=== PATIENT | male | born 1990 | race Caucasian/White ===

== ENCOUNTER 2016-10-22 14:44 | Emergency (ER) | payer OTHER ==
[~2016-10-22] VITALS: Ht 167.6 cm; Wt 47.2 kg
[2016-10-22 14:47] VITALS: TEMP 36.5; Ht 167.6 cm; Wt 47.2 kg
[2016-10-22] MEDS ORDERED: ONDANSETRON INJ 2 MG/ML 2 ML VIAL IV STA ×2 (15:01→16:51)
[2016-10-22] MEDS ORDERED: SODIUM CHLORIDE 0.9% 1000ML 1,000 ML IV STA (15:01)
[2016-10-22] MEDS ORDERED: MoRPHine SULFATE 4 MG/ML 1 ML CARP\\VIAL IV STA (15:01)
[2016-10-22 15:38] LABS: BASO % 0.6 %; BASO ABS # 0.04 K/uL (0-0.2); COMPLETE YES; EOS % 2.6 %; LYMPH % 24.5 %; LYMPH ABS # 1.67 K/uL (1.2-3.4); MEAN CORPUSCULAR HEMOGLOBIN 31.3 pg (25-34); MEAN CORPUSCULAR HGB CONC 35.5 g/dl (32-36); MEAN PLATELET VOLUME 9.2 fL (7.4-10.4); MONO % 6.2 %; NEUT % 66.1 %; PLATELET COUNT 232 K/uL (130-400); RED BLOOD COUNT 5.34 M/uL (4.7-6.1); WHITE BLOOD COUNT 6.82 K/uL (4.8-10.8)
[2016-10-22 15:50] LABS: BUN/CREATININE RATIO 13.9 (10-20); CALCIUM 9.8 mg/dl (8.5-10.1); POTASSIUM 3.9 mmol/L (3.5-5.1)
--- NOTE | 2016-10-22 15:59 | DIAGNOSTIC IMAGING REPORT ---
ABDOMEN AND PELVIS CT WITHOUT CONTRAST CT DOSE: 300.45 mGycm HISTORY: right flank pain eval for stone TECHNIQUE: Multiaxial CT images of the abdomen and pelvis were performed without the use of intravenous and oral contrast according to the standard department stone protocol. COMPARISON STUDY: None. FINDINGS: Emphysema at the lung bases. The unenhanced liver, gallbladder, spleen, pancreas, and adrenal glands are unremarkable. No renal stones or hydronephrosis. No bowel wall thickening or obstruction. Bladder is not well-distended but appears unremarkable. The appendix is identified within the right lower quadrant on images 361 through 370. This is normal in caliber.. No suspicious lytic or blastic osseous lesions. IMPRESSION: 1. No renal stones or hydronephrosis. 2. Emphysema at the lung bases. This could represent an alpha 1 antitrypsin deficiency. Clinical correlation recommended. Electronically signed by: Tae Michael M.D. 10/22/2016 3:57 PM Dictated Date/Time: 10/22/2016 3:49 PM
[2016-10-22] MEDS ORDERED: KETOROLAC TROMETHAMINE 30 MG/ML VIAL IV STA (16:02)
[2016-10-22 16:12] LABS: URINE APPEARANCE CLEAR (CLEAR); URINE BILIRUBIN NEG (NEG); URINE COLOR YELLOW; URINE NITRITE NEG (NEG); URINE SPECIFIC GRAVITY 1.019 (1.000-1.030); UROBILINOGEN NEG (NEG)
[2016-10-22 16:15] LABS: MANUAL MICROSCOPIC REQUIRED? NO; REVIEW REQ? NO
[2016-10-22 17:00] VITALS: BP 127/79; PULSE 50; O2SAT 98
[2016-10-22] MEDS ORDERED: ONDANSETRON HOME PACK 4MG OD TAB PO ONE (17:00)
--- NOTE | 2016-10-22 18:05 | EMERGENCY ROOM VISIT NOTE ---
History Report prepared by Vladimir: Mya Burleson Under the Supervision of: Dr. Randy Cedillo M.D. First contact with patient: 14:49 Chief Complaint: ABDOMINAL PAIN Stated Complaint: VOMITING, STOMACH PAINS Nursing Triage Summary: Pt presents with c/o right sided abd pain and lower back pain x 4 days. N/V/D. Denies urinary s/sx. Denies testicular pain. Fever/chills. History of Present Illness The patient is a 26 year old male who presents to the Emergency Room with complaints of persistent right lower quadrant abdominal pain that began 4 days ago. He describes it as if all of his body weight is in one spot on his abdomen. He also complains of vomiting and diarrhea. Since his abdominal pain began, he usually has an episode of diarrhea in the morning and an episode in the evening. Denies fever, urinary symptoms, or other complaints. Source of History: patient Onset: 4 days ago Position: abdomen (RLQ) Timing: other (persistent) Associated Symptoms: + diarrhea, + vomiting, No fevers, No urinary symptoms Review of Systems See HPI for pertinent positives & negatives. A total of 10 systems reviewed and were otherwise negative. Past Medical & Surgical Medical Problems: (1) Attn Deficit W Hyperact (2) Depressive Disorder Nec (3) Facial swelling (4) Lumbago (5) Tobacco Use Disorder (6) Tooth infection Family History No pertinent family history Social History Smoking Status: Current Every Day Smoker Alcohol Use: occasionally Drug Use: marijuana Marital Status: single Occupation Status: employed Current/Historical Medications No Active Prescriptions or Reported Meds Allergies Coded Allergies: No Known Allergies (Unverified , 01/20/16) Physical Exam Vital Signs Date Time Temp Pulse Resp B/P Pulse Ox O2 Delivery O2 Flow Rate FiO2 10/22/16 17:00 50 16 127/79 98 10/22/16 15:27 50 18 96 Room Air 10/22/16 14:47 36.5 83 18 157/87 100 Room Air Physical Exam Constitutional: Vital signs reviewed. Eyes: Pupils are equal round reactive to light. Conjunctiva are noninjected. ENT: Pharynx is clear without erythema or exudate. Mucous membranes are moist. Neck supple without meningeal signs. Respiratory: Minimal scattered wheezing to auscultation. Breath sounds are equal bilaterally. Cardiovascular: Regular rate and rhythm. No rubs or gallops. GI: Soft, nondistended. Diffuse abdominal tenderness. No CVA tenderness. Bowel sounds are present. Musculoskeletal: No peripheral edema. No lower extremity tenderness. Integumentary: No cyanosis. Neurological: The patient is awake and alert. No focal deficits. Psychiatric: Normal affect. Medical Decision & Procedures ER Provider Diagnostic Interpretation: Radiology results as stated below per my review and the radiologist's interpretation: ABDOMEN AND PELVIS CT WITHOUT CONTRAST CT DOSE: 300.45 mGycm HISTORY: right flank pain eval for stone TECHNIQUE: Multiaxial CT images of the abdomen and pelvis were performed without the use of intravenous and oral contrast according to the standard department stone protocol. COMPARISON STUDY: None. FINDINGS: Emphysema at the lung bases. The unenhanced liver, gallbladder, spleen, pancreas, and adrenal glands are unremarkable. No renal stones or hydronephrosis. No bowel wall thickening or obstruction. Bladder is not well-distended but appears unremarkable. The appendix is identified within the right lower quadrant on images 361 through 370. This is normal in caliber.. No suspicious lytic or blastic osseous lesions. IMPRESSION: 1. No renal stones or hydronephrosis. 2. Emphysema at the lung bases. This could represent an alpha 1 antitrypsin deficiency. Clinical correlation recommended. Electronically signed by: Tae Michael M.D. 10/22/2016 3:57 PM Dictated Date/Time: 10/22/2016 3:49 PM Laboratory Results 10/22/16 15:20 Red Blood Count 5.34, Mean Corpuscular Volume 88.0, Mean Corpuscular Hemoglobin 31.3, Mean Corpuscular Hemoglobin Concent 35.5, Mean Platelet Volume 9.2, Neutrophils (%) (Auto) 66.1, Lymphocytes (%) (Auto) 24.5, Monocytes (%) (Auto) 6.2, Eosinophils (%) (Auto) 2.6, Basophils (%) (Auto) 0.6, Neutrophils # (Auto) 4.51, Lymphocytes # (Auto) 1.67, Monocytes # (Auto) 0.42, Eosinophils # (Auto) 0.18, Basophils # (Auto) 0.04 10/22/16 15:20 Test 10/22/16 15:20 White Blood Count 6.82 K/uL (4.8-10.8) Red Blood Count 5.34 M/uL (4.7-6.1) Hemoglobin 16.7 g/dL (14.0-18.0) Hematocrit 47.0 % (42-52) Mean Corpuscular Volume 88.0 fL (80-100) Mean Corpuscular Hemoglobin 31.3 pg (25-34) Mean Corpuscular Hemoglobin Concent 35.5 g/dl (32-36) Platelet Count 232 K/uL (130-400) Mean Platelet Volume 9.2 fL (7.4-10.4) Neutrophils (%) (Auto) 66.1 % Lymphocytes (%) (Auto) 24.5 % Monocytes (%) (Auto) 6.2 % Eosinophils (%) (Auto) 2.6 % Basophils (%) (Auto) 0.6 % Neutrophils # (Auto) 4.51 K/uL (1.4-6.5) Lymphocytes # (Auto) 1.67 K/uL (1.2-3.4) Monocytes # (Auto) 0.42 K/uL (0.11-0.59) Eosinophils # (Auto) 0.18 K/uL (0-0.5) Basophils # (Auto) 0.04 K/uL (0-0.2) RDW Standard Deviation 49.0 fL (36.4-46.3) RDW Coefficient of Variation 15.2 % (11.5-14.5) Immature Granulocyte % (Auto) 0.0 % Immature Granulocyte # (Auto) 0.00 K/uL (0.00-0.02) Urine Color YELLOW Urine Appearance CLEAR (CLEAR) Urine pH 6.0 (4.5-7.5) Urine Specific [place] 1.019 (1.000-1.030) Urine Protein NEG (NEG) Urine Glucose (UA) NEG (NEG) Urine Ketones NEG (NEG) Urine Occult Blood NEG (NEG) Urine Nitrite NEG (NEG) Urine Bilirubin NEG (NEG) Urine Urobilinogen NEG (NEG) Urine Leukocyte Esterase NEG (NEG) Anion Gap 6.0 mmol/L (3-11) Est Creatinine Clear Calc Drug Dose 74.7 ml/min Estimated GFR () 119.9 Estimated GFR (Non- 103.4 BUN/Creatinine Ratio 13.9 (10-20) Calcium Level 9.8 mg/dl (8.5-10.1) Total Bilirubin 0.7 mg/dl (0.2-1) Direct Bilirubin 0.2 mg/dl (0-0.2) Aspartate Amino Transf (AST/SGOT) 26 U/L (15-37) Alanine Aminotransferase (ALT/SGPT) 45 U/L (12-78) Alkaline Phosphatase 78 U/L (45-117) Total Protein 9.2 gm/dl (6.4-8.2) Albumin 5.1 gm/dl (3.4-5.0) Lipase 129 U/L (73-393) Laboratory results as reviewed by me. Medications Administered Medications (Trade) Dose Ordered Sig/Scarlett Route Start Time Stop Time Status Last Admin Dose Admin Morphine Sulfate (MoRPHine SULFATE INJ) 4 mg ONE STAT IV 10/22/16 15:01 10/22/16 15:02 DC 10/22/16 15:19 4 MG Ondansetron HCl 4 mg 4 mg NOW STAT IV 10/22/16 15:01 10/22/16 15:02 DC 10/22/16 15:20 4 MG Sodium Chloride (Nss 1000ml) 1,000 ml @ 999 mls/hr Q1H1M STAT IV 10/22/16 15:01 10/22/16 16:01 DC 10/22/16 15:19 999 MLS/HR Ketorolac Tromethamine (Toradol Inj) 15 mg NOW STAT IV 10/22/16 16:02 10/22/16 16:03 DC 10/22/16 16:14 15 MG Ondansetron HCl (ZOFRAN ODT 4MG Home Pack) 1 homepack UD ONCE PO 10/22/16 17:00 10/22/16 17:01 DC 10/22/16 16:56 1 HOMEPACK Ondansetron HCl (Zofran Inj) 4 mg NOW STAT IV 10/22/16 16:51 10/22/16 16:52 DC 10/22/16 16:56 4 MG ED Course 1451: The patient was evaluated in room B8. A complete history and physical exam was performed. 1501: Ordered NSS 1000 ml @ 999 mls/hr IV, Zofran Inj 4 mg IV, Morphine Sulfate 4 mg IV. 1602: I reassessed the patient and talked to him about test results. He will follow closely with his doctor. Ordered Toradol Inj 15 mg IV. 1638: I reassessed the patient. he appeared comfortable and in no apparent discomfort. He reviewed the urine results, discharge instructions, and return instructions with the patient. Medical Decision This is a 26-year-old male who presents with abdominal pain, vomiting and diarrhea. Differential diagnosis includes appendicitis, enteritis, colitis, irritable bowel syndrome, inflammatory bowel disease, kidney stone. I did perform a limited focused review of portions of the patient's old chart on the electronic medical record. The patient has had no recent pertinent visits to this hospital. I did evaluate the patient as noted above. The patient is presenting with 4 days of abdominal pain. He has also had vomiting and diarrhea. He has diffuse tenderness on examination. IV access was established. I did treat the patient with IV morphine and Zofran. He was also given normal saline IV. I did order and personally review the patient's urinalysis his white blood cell count is not elevated. He is not anemic. LFTs and lipase are unremarkable. As described above. I did order and review the patient's blood work as noted in the electronic medical record. I did order a CT of the abdomen and pelvis. I did review the images myself as well as the radiology report as described above. There is no evidence of acute pathology. I did reevaluate the patient. He appears to be in no apparent discomfort. He did complain of additional pain. He was given Toradol IV and then Zofran IV. He was informed of his test results. He was advised to follow with his doctor within 24 hours for reevaluation. He was given return instructions as outlined below. He was discharged home with Zofran home pack. Impression Primary Impression: Diffuse abdominal pain Additional Impression: Vomiting and diarrhea Scribe Attestation The scribe's documentation has been prepared under my direct and personally reviewed by me in its entirety. I confirm that the note above accurately reflects all work, treatment, procedures, and medical decision making performed by me. Departure Information Dispostion Home / Self-Care Prescriptions No Active Prescriptions or Reported Meds Referrals No Doctor, Assigned (PCP) Patient Instructions ED Abd Pain Unkn Cause Male, My [facility] Additional Instructions You have been examined and treated today on an emergency basis only. This is not a substitute for, or an effort to provide, complete comprehensive medical care. It is impossible to recognize and treat all injuries or illnesses in a single emergency department visit. It is therefore important that you follow up closely with your physician within 24 hours. Call as soon as possible for an appointment. Return for worsening symptoms or if you develop fever or any other concerning symptoms. Problem Qualifiers
== END 2016-10-22 17:02 | disposition home or self-care (01) ==
LOC: C.EDB 14:45
DX: R10.31 Right lower quadrant pain (principal); R11.10 Vomiting, unspecified; R19.7 Diarrhea, unspecified; F90.0 Attention-deficit hyperactivity disorder, predominantly inattentive type; F32.9 Major depressive disorder, single episode, unspecified; F17.200 Nicotine dependence, unspecified, uncomplicated

== ENCOUNTER 2016-11-14 12:32 | Emergency (ER) | payer OTHER ==
[~2016-11-14] VITALS: Ht 167.6 cm; Wt 46.9 kg
[2016-11-14 12:34] VITALS: TEMP 36.5; Ht 167.6 cm; Wt 46.9 kg
[2016-11-14] MEDS ORDERED: SODIUM CHLORIDE 0.9% 1000ML 1,000 ML IV STA (13:12)
[2016-11-14] MEDS ORDERED: ONDANSETRON INJ 2 MG/ML 2 ML VIAL IV STA (13:12)
[2016-11-14] MEDS: MoRPHine SULFATE 4 MG/ML 1 ML CARP\\VIAL IV PRN ×2 (13:34→15:03)
[2016-11-14 13:52] LABS: BASO % 0.8 %; BASO ABS # 0.05 K/uL (0-0.2); COMPLETE YES; HEMATOCRIT 48.4 % (42-52); IG% 0.2 %; LYMPH % 23.8 %; LYMPH ABS # 1.45 K/uL (1.2-3.4); MEAN CELL VOLUME 89.6 fL (80-100); MEAN CORPUSCULAR HEMOGLOBIN 30.7 pg (25-34); MEAN CORPUSCULAR HGB CONC 34.3 g/dl (32-36); MONO % 7.7 %; NEUT % 66.5 %; PLATELET COUNT 241 K/uL (130-400)
[2016-11-14 14:05] LABS: URINE APPEARANCE CLEAR (CLEAR); URINE BILIRUBIN NEG (NEG); URINE COLOR DK YELLOW; URINE NITRITE NEG (NEG); URINE SPECIFIC GRAVITY 1.028 (1.000-1.030); UROBILINOGEN NEG (NEG)
--- NOTE | 2016-11-14 14:05 | DIAGNOSTIC IMAGING REPORT ---
ABDOMEN 2VIEW W/PA CHEST RTN CLINICAL HISTORY: ABDOMINAL PAIN/GI pain. Nausea. COMPARISON STUDY: No previous studies for comparison. FINDINGS: The soft tissues, psoas shadows, renal outlines and intestinal gas pattern appear normal. There is no evidence for bowel obstruction. There is no evidence for free intraperitoneal air. No abnormal abdominal calcifications are seen. A frontal view of the chest was performed and is unremarkable. IMPRESSION: Normal study. Electronically signed by: Oneil Hayden M.D. 11/14/2016 2:04 PM Dictated Date/Time: 11/14/2016 2:03 PM
[2016-11-14 14:13] LABS: MANUAL MICROSCOPIC REQUIRED? NO; REVIEW REQ? NO
[2016-11-14 14:16] LABS: BUN/CREATININE RATIO 10.7 (10-20); CALCIUM 10.3 mg/dl (8.5-10.1); CREATININE 0.97 mg/dl (0.60-1.40); POTASSIUM 3.9 mmol/L (3.5-5.1)
[2016-11-14] MEDS ORDERED: ONDA4TAB46 PO (14:51)
[2016-11-14] MEDS ORDERED: DICY20TA35 PO (14:51)
[2016-11-14 15:17] VITALS: BP 130/81; PULSE 50; O2SAT 97
--- NOTE | 2016-11-14 21:08 | EMERGENCY ROOM VISIT NOTE ---
ED Visit Note First contact with patient: 12:59 Chief Complaint: Abdominal pain. History of Present Illness: Mr. Jaramillo is a 26 year-old white male who ambulates into the ED accompanied by female friend complaining of mid abdominal pain. Historically patient reports no significant gastrointestinal disorders or abdominal surgeries. He was seen here approximately 2 weeks ago for similar symptoms and after blood work and a CT scan no cause for his pain was found. He was referred to his PCP and on follow-up he reports no additional testing or specialist referral was done. Patient reports over the last 2 days he has been having gradual onset of abdominal pain. He reports this pain is just superior to the umbilicus in the right upper and left upper quadrants. He reports as if someone has punched him in the stomach. He rates his discomfort 8/10. His pain is nonradiating. Palpation increases his discomfort. He has not identified any alleviating factors related to the pain. He has not taken any medication for pain prior to arrival at the hospital. Associated with his pain he reports she's had multiple episodes of bilious vomiting and multiple episodes of dark brown watery stools. He reports she's been having some hot flashes and feeling may have had a fever and he has noted some mild urinary burning and a decreased appetite. Patient denies chills, sweats, skin eruptions, skin color changes, upper respiratory tract symptoms, shortness of breath, chest pain, rectal bleeding, black/tarry stools, hematuria, back/flank pain. Review of Systems: As noted above in history of present illness. All body systems were reviewed and found to be negative as noted above. Past Medical History: Heart disease; patient report he had heart surgery as a child, asthma, bronchitis, pneumonia. Current Medications: Patient denies. Allergies to Medications: Patient denies. Social History: Patient is not employed; he feels safe in his home environment; he admits to tobacco use and denies alcohol use. Physical Examination: Vital Signs: Date Time Temp Pulse Resp B/P Pulse Ox O2 Delivery O2 Flow Rate FiO2 11/14/16 15:17 50 18 130/81 97 11/14/16 15:00 50 18 130/81 97 Room Air 11/14/16 13:00 55 18 136/88 94 Room Air 11/14/16 12:34 36.5 144 18 139/88 94 Room Air GENERAL: 26-year-old male in mild to moderate distress due to pain, nontoxic- appearing, afebrile and hemodynamically stable. NEUROLOGICAL: Awake, alert and oriented to person, place and time. Answering questions appropriately and following commands. Normal gait. Good hand eye coordination. SKIN: Warm, dry and pink. No soft tissue eruptions or trauma noted. HEENT: Atraumatic and normocephalic. PERRL. Sclera white and conjunctiva pink. Oral cavity moist and pink. Pharynx is nonerythematous or edematous. Speech normal. No lymphadenopathy. Trachea midline. No jugular venous distention. BACK: No tenderness over the bony spine. Mild bilateral CVA tenderness. THORAX: Lungs sounds are clear to auscultation and equal bilaterally with symmetrical chest wall. No wheezing, rales or rhonchi. No crepitus, tenderness , subcutaneous air or deformities noted. HEART: Regular rate and rhythm. No gallops, rubs or murmurs are appreciated. ABDOMEN: Flat and soft with [id number] tenderness in all quadrants. Decreased bowel sounds in all quadrants. No guarding, rigidity or organomegaly. EXTREMITIES: Moves all extremities well on command and with purpose. All distal neurovascular statuses are intact and equal bilaterally. ED Course: Patient is assessed as noted above. Laboratory Testing: Test 11/14/16 13:25 11/14/16 13:30 Range/Units White Blood Count 6.10 4.8-10.8 K/uL Red Blood Count 5.40 4.7-6.1 M/uL Hemoglobin 16.6 14.0-18.0 g/dL Hematocrit 48.4 42-52 % Mean Corpuscular Volume 89.6 80-100 fL Mean Corpuscular Hemoglobin 30.7 25-34 pg Mean Corpuscular Hemoglobin Concent 34.3 32-36 g/dl Platelet Count 241 130-400 K/uL Mean Platelet Volume 9.0 7.4-10.4 fL Neutrophils (%) (Auto) 66.5 % Lymphocytes (%) (Auto) 23.8 % Monocytes (%) (Auto) 7.7 % Eosinophils (%) (Auto) 1.0 % Basophils (%) (Auto) 0.8 % Neutrophils # (Auto) 4.06 1.4-6.5 K/uL Lymphocytes # (Auto) 1.45 1.2-3.4 K/uL Monocytes # (Auto) 0.47 0.11-0.59 K/uL Eosinophils # (Auto) 0.06 0-0.5 K/uL Basophils # (Auto) 0.05 0-0.2 K/uL RDW Standard Deviation 49.4 36.4-46.3 fL RDW Coefficient of Variation 15.0 11.5-14.5 % Immature Granulocyte % (Auto) 0.2 % Immature Granulocyte # (Auto) 0.01 0.00-0.02 K/uL Sodium Level 143 136-145 mmol/L Potassium Level 3.9 3.5-5.1 mmol/L Chloride Level 106 98-107 mmol/L Carbon Dioxide Level 29 21-32 mmol/L Anion Gap 8.0 3-11 mmol/L Blood Urea Nitrogen 10 7-18 mg/dl Creatinine 0.97 0.60-1.40 mg/dl Est Creatinine Clear Calc Drug Dose 76.6 ml/min Estimated GFR () 124.4 Estimated GFR (Non- 107.3 BUN/Creatinine Ratio 10.7 10-20 Random Glucose 110 70-99 mg/dl Calcium Level 10.3 8.5-10.1 mg/dl Total Bilirubin 0.8 0.2-1 mg/dl Direct Bilirubin 0.2 0-0.2 mg/dl Aspartate Amino Transf (AST/SGOT) 18 15-37 U/L Alanine Aminotransferase (ALT/SGPT) 33 12-78 U/L Alkaline Phosphatase 77 45-117 U/L Total Protein 8.8 6.4-8.2 gm/dl Albumin 5.2 3.4-5.0 gm/dl Lipase 114 73-393 U/L Urine Color DK YELLOW Urine Appearance CLEAR CLEAR Urine pH 7.0 4.5-7.5 Urine Specific [place] 1.028 1.000-1.030 Urine Protein 1+ NEG Urine Glucose (UA) NEG NEG Urine Ketones TRACE NEG Urine Occult Blood NEG NEG Urine Nitrite NEG NEG Urine Bilirubin NEG NEG Urine Urobilinogen NEG NEG Urine Leukocyte Esterase TRACE NEG Urine WBC (Auto) 1-5 0-5 /hpf Urine RBC (Auto) 0-4 0-4 /hpf Urine Hyaline Casts (Auto) 1-5 0-5 /lpf Urine Epithelial Cells (Auto) 10-20 0-5 /lpf Urine Bacteria (Auto) NEG NEG Acute Abdominal X-Ray Series: Was read by myself and the radiologist showing no acute infiltrates, effusions or pneumothorax. Normal heart silhouette and bony anatomy. Abdominal component shows a normal-appearing bowel gas pattern with no signs of obstruction. No evidence of intraperitoneal free air. Patient was hydrated with normal saline and patient received a 4 mg of morphine IV for pain and 4 mg of Zofran IV for nausea. Patient was not able to give a stool sample. Patient was reassessed multiple times during his stay in the emergency department. Patient's case was reviewed with Dr. Rogers; we agreed on diagnostic approach , treatment, disposition and plan. Patient was educated about today's findings and instructed on his treatment plan ; he verbalizes understanding and agreement with this plan. Clinical Impression: Abdominal pain. Nausea/vomiting. Diarrhea. Decision-Making: Initially my differential diagnosis I considered bowel obstruction, pancreatitis, hepatitis, diverticulitis, gastroenteritis, perforated viscus and other causes. Disposition: Patient discharged home in stable condition; prior to departure he was reassessed and reported his pain was once again in 02/18 and requested additional medications prior to discharge. He was given additional 4 mg of morphine IV for his pain. Plan: Patient was prescribed Bentyl and Zofran for his symptoms and instructed on their use. Additionally he was encouraged to alternate ibuprofen and acetaminophen as needed for pain and if his diarrhea returned [id number] Imodium. Patient was encouraged to follow-up with personal physician for recheck. Patient was encouraged return the ED for worsening symptoms, fevers, bloody stools, bloody vomiting or any new/concerning symptoms.
== END 2016-11-14 15:17 | disposition home or self-care (01) ==
LOC: C.EDB 12:33 → C.EDC 15:17
DX: R10.9 Unspecified abdominal pain (principal); R11.2 Nausea with vomiting, unspecified; R19.7 Diarrhea, unspecified; I51.9 Heart disease, unspecified; J45.909 Unspecified asthma, uncomplicated; F17.200 Nicotine dependence, unspecified, uncomplicated

== ENCOUNTER 2018-01-30 07:50 | Emergency (ER) | payer SELFPAY ==
[~2018-01-30] VITALS: Ht 167.6 cm; Wt 46.7 kg
[~2018-01-30 07:50] MED LIST: ONDA4TAB10 SL; PRLSR20 PO
[2018-01-30 07:54] VITALS: TEMP 36.7; Ht 167.6 cm; Wt 46.7 kg
[2018-01-30] MEDS ORDERED: ONDANSETRON INJ 2 MG/ML 2 ML VIAL IV STA (08:13)
[2018-01-30] MEDS ORDERED: KETOROLAC TROMETHAMINE 30 MG/ML VIAL IV STA (08:13)
[2018-01-30] MEDS ORDERED: SODIUM CHLORIDE 0.9% 1000ML 1,000 ML IV STA (08:13)
[2018-01-30] MEDS ORDERED: SUCRALFATE 1 GM TAB PO ONE (08:15)
[2018-01-30 08:25] LABS: BASO % 0.3 %; BASO ABS # 0.02 K/uL (0-0.2); EOS % 1.6 %; EOS ABS # 0.11 K/uL (0-0.5); HEMATOCRIT 48.9 % (42-52); HEMOGLOBIN 16.6 g/dL (14.0-18.0); IG# 0.01 K/uL (0.00-0.02); LYMPH % 22.2 %; LYMPH ABS # 1.57 K/uL (1.2-3.4); MEAN CELL VOLUME 89.4 fL (80-100); MEAN CORPUSCULAR HEMOGLOBIN 30.3 pg (25-34); MEAN CORPUSCULAR HGB CONC 33.9 g/dl (32-36); MEAN PLATELET VOLUME 9.5 fL (7.4-10.4); MONO % 8.5 %; NEUT % 67.3 %; NEUT ABS # 4.75 K/uL (1.4-6.5); PLATELET COUNT 190 K/uL (130-400); RED CELL DISTRIBUTION WIDTH CV 13.7 % (11.5-14.5); RED CELL DISTRIBUTION WIDTH SD 44.7 fL (36.4-46.3); WHITE BLOOD COUNT 7.06 K/uL (4.8-10.8)
[2018-01-30 08:45] LABS: ALBUMIN 4.7 gm/dl (3.4-5.0); CALCIUM 9.6 mg/dl (8.5-10.1); CREATININE 1.02 mg/dl (0.60-1.40); POTASSIUM 3.4 mmol/L (3.5-5.1); TOTAL PROTEIN 8.9 gm/dl (6.4-8.2)
--- NOTE | 2018-01-30 08:46 | DIAGNOSTIC IMAGING REPORT ---
ABDOMEN 2VIEW W/PA CHEST RTN HISTORY: 27 years-old Male acute abd pain acute generalized abdominal pain COMPARISON: Chest radiograph 12/27/2017, CT 12/27/2017 TECHNIQUE: PA view the chest with erect and supine views of the abdomen FINDINGS: Surgical clips project over the left mediastinal margin. Cardiac silhouette is within normal limits. No pneumothorax, pleural effusion, focal airspace consolidation or overt pulmonary edema. Lungs are mildly hyperinflated. Bones of the chest appear grossly intact. Bowel gas pattern is nonobstructive. No pneumatosis or pneumoperitoneum. Calcifications of the pelvis suggest phleboliths. Moderate stool volume of the distal sigmoid colon and rectum. No fracture. IMPRESSION: 1. No acute processes of the chest. 2. Nonobstructive bowel gas pattern. 3. Moderate stool volume of the distal sigmoid and rectum. The above report was generated using voice recognition software. It may contain grammatical, syntax or spelling errors. Electronically signed by: Joey Hanson M.D. 01/30/2018 8:45 AM Dictated Date/Time: 01/30/2018 8:42 AM
[2018-01-30] MEDS ORDERED: PROMETHAZINE HCL INJ 25 MG in SODIUM CHLORIDE 0.9% 50ML 50 ML IV STA (08:49)
[2018-01-30] MEDS ORDERED: ALBUTEROL HFA 8 GM INHALER INH ONE (09:00)
[2018-01-30] MEDS ORDERED: PROM25TA9 PO (09:34)
[2018-01-30 09:36] VITALS: BP 115/77; PULSE 60; O2SAT 95
--- NOTE | 2018-01-30 17:06 | EMERGENCY ROOM VISIT NOTE ---
History First contact with patient: 07:58 Chief Complaint: VOMITING Stated Complaint: VOMITING,UNABLE TO EAT OR DRINK Nursing Triage Summary: pt reports nose running, throat dry, having trouble walking , vomiting, abd pain all over. sx started yesterday History of Present Illness The patient is a 27 year old white male who presents to the Emergency Room with complaints of abdominal pain, vomiting, and upper respiratory congestion. He thinks that his symptoms started after recently camping. He has had episodes roughly once a month with recurrent abdominal pain and vomiting. He is admittedly a heavy cannabis user. No diarrhea. No known ill contacts. He notes nasal congestion and clear rhinorrhea. He also notes a more vigorous cough and occasional wheezing his chest. He has had some shortness of breath. No fevers, chills, sweats, or ear pain. Female mva still operator accompanies him today. Review of Systems REVIEW OF SYSTEM: HEENT: No dizziness, visual problems, hearing loss, or tinnitus. There is no difficulty swallowing and no oral lesions are present. LYMPH: No adenopathy. PULMONARY: Positive cough, shortness of breath, and sputum production. No hemoptysis. CARDIOVASCULAR: No chest pain, palpitations, or peripheral edema. GASTROINTESTINAL: No diarrhea, constipation. Positive nausea, vomiting, and abdominal pain. GENITOURINARY: No dysuria, frequency, urgency or nocturia. NEUROLOGIC: No muscle tenderness, epilepsy or history of neurological problems. No history of chronic headaches. MUSCULOSKELETAL: No history of joint tenderness/swelling. No history of arthritis or arthralgias. SKIN: No rashes or lesions. PSYCHIATRIC: Positive history of depression and ADHD. Positive for cannabis use. ENDOCRINE: No history of diabetes, thyroid disorders, or abnormal hair growth. Past Medical/Surgical History Medical Problems: (1) Attn Deficit W Hyperact (2) Depressive Disorder Nec (3) Facial swelling (4) Lumbago (5) Tobacco Use Disorder (6) Tooth infection Family History No pertinent family history Social History Smoking Status: Current Every Day Smoker Smokeless Tobacco Use: No Alcohol Use: occasionally Drug Use: marijuana Marital Status: single Housing Status: lives with significant other Occupation Status: employed Current/Historical Medications Scheduled PRN Promethazine Hcl (Phenergan), 25 MG PO Q6H PRN for Nausea Physical Exam Vital Signs Date Time Temp Pulse Resp B/P (MAP) Pulse Ox O2 Delivery O2 Flow Rate FiO2 01/30/18 09:36 60 16 115/77 95 Room Air 01/30/18 09:02 55 18 154/79 95 01/30/18 07:54 36.7 75 18 149/70 98 Room Air Physical Exam General: Well-developed, well-nourished, thin young male, in no acute distress. Laying on the bed. Alert and oriented. Occasional dry heaving. Skin: Warm and dry with good turgor. No rashes or lesions. No ecchymosis or erythema. The patient is not diaphoretic. No abrasions. HEENT: Normocephalic atraumatic. Eyes PERRLA, EOMI. No conjunctiva or scleral injection. Ears TMs intact bilaterally with good light reflexes. No erythema or bulging. No hemotympanum. Canals are patent. Nares patent bilaterally without turbinate enlargement. Bilateral clear nasal drainage. No epistaxis. Oropharynx without erythema or exudate. Uvula midline, oral mucosa moist. No lesions present. No teeth. Lymphatics are palpated without anterior or posterior chain enlargement or tenderness. Heart: Heart RRR. No MGR. Peripheral pulses are 2+. Lungs: Lungs have rhonchi and wheezing present in the left lower lobe. No crackles. The rest of his lung simms are clear. Fair air movement. The patient is able to take a deep breath. Frequent deep cough. Abdomen: Abdomen was inspected, auscultated, and palpated. Bowel sounds present x 4. Soft, diffuse tenderness to palpation. No hepato-splenomegaly. No masses noted. No rebound, negative Arreola sign. No focal pain over McBurney 's point. No CVA tenderness. Musculoskeletal: Gross motor function of the upper and lower extremities is intact and unremarkable. Medical Decision & Procedures ER Provider Diagnostic Interpretation: Acute abdominal x-ray series obtained today was reviewed by me and read by radiology. It is unremarkable for acute findings. No evidence of pneumonia. Laboratory Results 01/30/18 08:06 Red Blood Count 5.47, Mean Corpuscular Volume 89.4, Mean Corpuscular Hemoglobin 30.3, Mean Corpuscular Hemoglobin Concent 33.9, Mean Platelet Volume 9.5, Neutrophils (%) (Auto) 67.3, Lymphocytes (%) (Auto) 22.2, Monocytes (%) (Auto) 8.5, Eosinophils (%) (Auto) 1.6, Basophils (%) (Auto) 0.3, Neutrophils # (Auto) 4.75, Lymphocytes # (Auto) 1.57, Monocytes # (Auto) 0.60, Eosinophils # (Auto) 0.11, Basophils # (Auto) 0.02 01/30/18 08:06 Test 01/30/18 08:06 White Blood Count 7.06 K/uL (4.8-10.8) Red Blood Count 5.47 M/uL (4.7-6.1) Hemoglobin 16.6 g/dL (14.0-18.0) Hematocrit 48.9 % (42-52) Mean Corpuscular Volume 89.4 fL (80-100) Mean Corpuscular Hemoglobin 30.3 pg (25-34) Mean Corpuscular Hemoglobin Concent 33.9 g/dl (32-36) Platelet Count 190 K/uL (130-400) Mean Platelet Volume 9.5 fL (7.4-10.4) Neutrophils (%) (Auto) 67.3 % Lymphocytes (%) (Auto) 22.2 % Monocytes (%) (Auto) 8.5 % Eosinophils (%) (Auto) 1.6 % Basophils (%) (Auto) 0.3 % Neutrophils # (Auto) 4.75 K/uL (1.4-6.5) Lymphocytes # (Auto) 1.57 K/uL (1.2-3.4) Monocytes # (Auto) 0.60 K/uL (0.11-0.59) Eosinophils # (Auto) 0.11 K/uL (0-0.5) Basophils # (Auto) 0.02 K/uL (0-0.2) RDW Standard Deviation 44.7 fL (36.4-46.3) RDW Coefficient of Variation 13.7 % (11.5-14.5) Immature Granulocyte % (Auto) 0.1 % Immature Granulocyte # (Auto) 0.01 K/uL (0.00-0.02) Anion Gap 8.0 mmol/L (3-11) Est Creatinine Clear Calc Drug Dose 71.9 ml/min Estimated GFR () 116.2 Estimated GFR (Non- 100.3 BUN/Creatinine Ratio 11.4 (10-20) Calcium Level 9.6 mg/dl (8.5-10.1) Total Bilirubin 0.4 mg/dl (0.2-1) Aspartate Amino Transf (AST/SGOT) 16 U/L (15-37) Alanine Aminotransferase (ALT/SGPT) 25 U/L (12-78) Alkaline Phosphatase 77 U/L (45-117) Total Protein 8.9 gm/dl (6.4-8.2) Albumin 4.7 gm/dl (3.4-5.0) Globulin 4.2 gm/dl (2.5-4.0) Albumin/Globulin Ratio 1.1 (0.9-2) Amylase Level 68 U/L (25-115) Lipase 211 U/L (73-393) CBC, chemistry panel, amylase and lipase were obtained today. They are unremarkable. Medications Administered Medications (Trade) Dose Ordered Sig/Scarlett Route Start Time Stop Time Status Last Admin Dose Admin Ondansetron HCl (Zofran Inj) 4 mg NOW STAT IV 01/30/18 08:13 01/30/18 08:19 DC 01/30/18 08:25 4 MG Ketorolac Tromethamine (Toradol Inj) 30 mg NOW STAT IV 01/30/18 08:13 01/30/18 08:19 DC 01/30/18 08:25 30 MG Sucralfate (Carafate Tab) 1 gm NOW ONCE PO 01/30/18 08:15 01/30/18 08:19 DC 01/30/18 08:25 1 GM Sodium Chloride 1,000 ml @ 999 mls/hr Q1H1M STAT IV 01/30/18 08:13 01/30/18 09:13 DC 01/30/18 08:25 999 MLS/HR Promethazine HCl 25 mg/Sodium Chloride 51 ml @ 204 mls/hr NOW STAT IV 01/30/18 08:49 01/30/18 09:03 DC 01/30/18 09:05 204 MLS/HR Albuterol (Ventolin Hfa Inhaler) 2 puffs NOW ONCE INH 01/30/18 09:00 01/30/18 09:01 DC 01/30/18 09:05 2 PUFFS ED Course Patient and his significant other were educated regarding today's findings. Conservative care measures were discussed. IV was established. Labs were obtained. Radiographic imaging was obtained. Patient was hydrated with a liter of fluid. He was given Toradol 30 mg IV and Zofran for along with Carafate 1 g p.o. Nausea and discomfort persisted. He was given Phenergan 25 mg IV. Abdominal pain improved mildly and nausea resolved. I did review his EMR and it is noted that he is here roughly once a month with the same symptoms. Possibility of cannabis hyperemesis syndrome was discussed with him. He states he does take a cannabis oil that has a much higher concentration than regular marijuana. He will go home and try hot shower. He was reassured that his labs were unremarkable as were his radiographic images. Prescription was provided for additional Phenergan 25 mg to be used every 6 hours as needed. Start with clear liquids and advance his diet as tolerated. In regard to his upper respiratory symptoms, continue Mucinex D daily until congestion resolves. He was given an albuterol inhaler to be used 2 puffs every 4 hours while awake for wheezing or shortness of breath. First 2 puffs were given in the ED. He was reassured that I do not suspect pneumonia at this time. Likelihood for bronchitis was discussed. Follow-up with his PCP if symptoms persist. He may require GI referral. Continue with Pepcid 20 mg daily at home. Medical Decision Possibility of bowel obstruction, gastritis, cannabis hyperemesis syndrome, cyclic vomiting, gastroenteritis, parasite infection, and foodborne illness were all considered. Medication Reconcilliation Current Medication List: was personally reviewed by me Blood Pressure Screening Patient's blood pressure: Normal blood pressure Impression Primary Impression: Abdominal pain in male Additional Impression: Vomiting Departure Information Dispostion Home / Self-Care Condition FAIR Prescriptions Promethazine Hcl (Phenergan) 25 Mg Tab 25 MG PO Q6H Y for Nausea, #12 TAB Prov: Rad Leger,P.A. 01/30/18 Forms DIET INSTRUCTION CL LIQUIDS, HOME CARE DOCUMENTATION FORM, Work Instructions, Return To Work: 1 day Specific Date: 01/31/18 IMPORTANT VISIT INFORMATION Patient Instructions My [facility] Additional Instructions Use the inhaler 2 puffs every 4 hours as needed for wheezing/cough Start Mucinex D to help with chest congestion Try hot showers for several minutes to see if it eases the abdominal pain Decrease cannabis use Phenergan 1 tablet every 6 hours as needed for continued nausea Follow-up with your PCP as needed Start with clear liquids and advance your diet as tolerated Work Instructions Return To Work: 1 day Specific Date: 01/31/18 Problem Qualifiers Additional Impression: Vomiting Vomiting type: bilious vomiting Nausea presence: with nausea Qualified Codes: R11.14 - Bilious vomiting
== END 2018-01-30 09:59 | disposition home or self-care (01) ==
LOC: C.EDB 07:51
DX: R11.10 Vomiting, unspecified (principal); R10.84 Generalized abdominal pain; R05 Cough; F90.9 Attention-deficit hyperactivity disorder, unspecified type; F32.9 Major depressive disorder, single episode, unspecified; F17.210 Nicotine dependence, cigarettes, uncomplicated

== ENCOUNTER 2022-09-06 13:24 | Inpatient (IN) ==
[2022-09-06] MEDS ORDERED: SODIUM CHLORIDE 0.9% 1000ML 1,000 ML IV ONE ×2 (13:34→16:06)
--- NOTE | 2022-09-06 13:36 | Emergency Department Note ---
Impression & Plan HANNA (acute kidney injury) ADMIT ED Provider Note HPI: The patient is a 32-year-old male who presents emergency department with a chief complaint of abdominal discomfort. Patient states over the past 2 days. Patient states he has had several episodes of vomiting during this time. Patient states he is lost approximately 3 pounds over about the past 2 weeks, he states he has had diminished appetite but has been eating 3 meals a day. Patient states that his low BMI is something that he has chronically had since his youth, states that this is not really an acute change for him. Patient states that over the past several days he has had increasing "spasms" in his hands and legs. On arrival here to the ED the patient is hemodynamically stable, he is frail-appearing and appears cachectic but otherwise in no acute distress. ROS: - Per HPI *Outpatient medications and allergy history reviewed. *Pertinent external medical records reviewed. PE: General: Alert, cachectic appearing HEENT: Normocephalic, trachea midline Eyes: Extraocular eye movement is intact, no scleral erythema Pulmonary: Clear to auscultation bilaterally, no wheezing Cardio: Regular rate and rhythm GI: Abdomen is soft to palpation : No suprapubic tenderness MSK: No evidence of trauma or malformation of the extremities, no edema Skin: No evidence of rash Neuro: Alert, no focal deficits Psychiatric: Cooperative laboratory monitor: (As interpreted by myself): - An order was placed for continuous cardiac monitoring - Patient was noted to be in sinus rhythm with a rate of 85 Interventions provided in ED: -IV fluid bolus Differential Diagnosis: Acute cholecystitis, rhabdomyolysis, appendicitis, small bowel obstruction, starvation ketosis, hypovolemia/dehydration, gastroenteritis, amongst other potential pathologies. Medical Decision Making: Patient presented to the emergency department with chief complaint of nausea and vomiting, abdominal pain, states he is also had muscle spasms in his hands and legs. On arrival here to the ED the patient is in no acute distress, he is hemodynamically stable, noted to be somewhat frail-appearing with low BMI at 15. 4. Patient states that this is been a chronic issue for him since his youth. Denies any history of any eating disorders. Denies any IV drug use or illicit drug use. Shortly after the patient arrived IV was established, patient was given multiple IV fluid boluses here in the ED which did seem to improve his symptoms from the standpoint of his muscle spasms. Lab work shows evidence of acute kidney injury with creatinine of 2.51, baseline was normal earlier this month. There is no leukocytosis, hemoglobin is slightly above upper limit of normal at 18.8. Potassium level slightly low at 3.4 which was ordered for oral repletion, BUN is also elevated at 28. CT imaging of the abdomen pelvis with oral contrast was obtained that does not show any evidence of any acute intra-abdominal pathology, no evidence of appendicitis. My reassessment following IV fluid resuscitation patient states he is feeling improved, I discussed all the above findings with the patient and recommended inpatient admission to which she was in agreement. [facility] hospitalist service was consulted for admission for acute renal failure. Patient was placed for admission in stable condition. Consultants: Hospitalist service, Dr. Brown Disposition discussion held by myself with: Patient Diagnosis: 1. Acute renal failure 2. Hypokalemia, mild 3. Ketonuria 4. Elevated BUN 5. Low BMI (15.4) Disposition: Admission Advised outpatient follow up that was discussed with the patient: -Return to the ED immediately with any new or worsening symptoms -Follow up with a PCP in 2-3 Days Oneil Streteer DO Emergency Medicine Past Med/Surg History Medical History Benzodiazepine overdose Gastritis, acute with hemorrhage History of marijuana use Left lumbar radiculitis Surgical History No pertinent past surgical history Social History Smoking Status: Current every day smoker Tobacco Type: Cigarettes Age Started Using Tobacco: 15; Age Quit Using Tobacco: 30; Hx Substance Use: Yes (Marijuana) Preferred Language: Serbian Feels Safe at Home: Yes Allergies Allergies Allergy/AdvReac Type Severity Reaction Status Date / Time No Known Allergies Allergy Verified 09/06/22 14:15 Home Meds Home Medications Medication Instructions Recorded Confirmed Marijuana 1 dose inhalation DIRECTED 09/20/21 09/06/22 Results & Data (ED) Vital Signs Vital Signs - 24 hr 09/06/22 13:29 09/06/22 14:55 09/06/22 16:45 Temperature 37 C Temperature Source Oral Pulse Rate 100 H Pulse Rate [Right Finger] 78 76 Respiratory Rate 18 20 20 Respiratory Effort / Characteristics Non-Labored Non-Labored Respiratory Depth Normal Normal Blood Pressure 123/96 Blood Pressure [Right Arm] 124/85 123/70 Blood Pressure Mean 105 Blood Pressure Mean [Right Arm] 98 87 Pulse Oximetry 95 97 98 Oxygen Delivery Method Room Air Room Air Room Air Sepsis Recent Fever Within 48 Hours No Sepsis New/Unexplained Change in Mental Status No Sepsis Action Taken by Nursing No Action Required Laboratory Data 09/06/22 13:39 09/06/22 13:39 Lab Results 09/06/22 09/06/22 09/06/22 Range/Units 13:39 13:39 17:50 WBC 9.83 (4.8-10.8) K/ul RBC 6.05 (4.70-6.10) M/uL Hgb 18.8 H (14.0-18.0) g/dl Hct 52.7 H (42.0-52.0) % MCV 87.1 (80.0-100.0) fL MCH 31.1 (25.0-34.0) pg MCHC 35.7 (32.0-36.0) g/dL RDW Std Deviation 43.8 (36.4-46.3) fL RDW Coeff of Erika 13.6 (11.5-14.5) % Plt Count 342 (130-400) K/uL MPV 8.8 L (9.4-12.4) fL Immature Gran % (Auto) 0.2 % Neut % (Auto) 75.5 % Lymph % (Auto) 15.7 % Hernando % (Auto) 7.9 % Eos % (Auto) 0.3 % Baso % (Auto) 0.4 % Neut # (Auto) 7.42 H (1.40-6.50) K/uL Lymph # (Auto) 1.54 (1.2-3.4) K/uL Hernando # (Auto) 0.78 H (0.11-0.59) K/uL Eos # (Auto) 0.03 (0-0.50) K/uL Baso # (Auto) 0.04 (0-0.2) K/uL Immature Gran # (Auto) 0.02 (0.01-0.20) K/uL Sodium 135 L (136-145) mmol/L Potassium 3.4 L (3.5-5.1) mmol/L Chloride 89 L (98-107) mmol/L Carbon Dioxide 30 (21-32) mmol/L Anion Gap 16 H (3-11) BUN 28 H (6-23) mg/dl Creatinine 2.51 H (0.6-1.4) mg/dl Est Cr Clr Drug Dosing 25.9 ml/min Est GFR ( Amer) 37.8 ml/min Est GFR (Non-Af Amer) 32.6 ml/min BUN/Creatinine Ratio 11.2 (10-20) Glucose 150 H (70-99(Fasting)) mg/dl Calcium 11.9 H (8.5-10.1) mg/dl Total Bilirubin 1.1 H (0.2-1.0) mg/dl AST 22 (13-39) U/L ALT 21 (7-52) U/L Alkaline Phosphatase 78 (34-104) U/L Total Creatine Kinase 197 (30-223) U/L Total Protein 10.2 H (6.0-8.3) gm/dl Albumin 6.9 H (3.4-5.0) gm/dl Globulin 3.3 (2.5-4.0) gm/dl Albumin/Globulin Ratio 2.1 H (0.9-2) Lipase 11 (11-82) U/L Urine Color Yellow Urine Appearance Cloudy A (Clear) Urine pH 5.0 (4.5-7.5) Ur Specific Enders 1.016 (1.000-1.030) Urine Protein 1+ H (Negative) Urine Glucose (UA) Negative (Negative) Urine Ketones Trace H (Negative) Urine Blood Negative (Negative) Urine Nitrite Negative (Negative) Urine Bilirubin Negative (Negative) Urine Urobilinogen Negative (Negative) Ur Leukocyte Esterase Negative (Negative) Administered Medications Discontinued Medications Sodium Chloride (Nss 1000ml) 1,000 mls @ 999 mls/hr IV .Q1H1M ONE Stop: 09/06/22 14:34 Last Infusion: 09/06/22 14:42 Dose: 0 mls/hr Documented By: Admin: 09/06/22 13:49 Dose: 999 mls/hr Documented By: JOANNE Sodium Chloride (Nss 1000ml) 1,000 mls @ 999 mls/hr IV .Q1H1M ONE Stop: 09/06/22 17:06 Last Infusion: 09/06/22 17:47 Dose: 0 mls/hr Documented By: Admin: 09/06/22 16:37 Dose: 999 mls/hr Documented By: NMS Imaging Data Radiologist's Impression: Abdomen/Pelvis CT 09/06/22 14:[address] WITH ORAL CONTRAST CT DOSE: 246.71 mGy.cm HISTORY: diffuse abd pain, HANNA TECHNIQUE: Multiaxial CT images of the abdomen and pelvis were performed following the use of oral contrast. A dose lowering technique was utilized adhering to the principles of ALARA. COMPARISON STUDY: Abdomen and pelvis CT 08/15/2022. FINDINGS: Emphysema again noted at the lung bases. No pneumoperitoneum. No pneumatosis. No acute fractures identified. The unenhanced liver, spleen, ad renal glands, pancreas, and kidneys are unremarkable. No renal or ureteral stones. No hydronephrosis. Normal gallbladder. Normal caliber abdominal aorta. No retroperitoneal lymphadenopathy. Suboptimal evaluation for bowel pathology due to the lack of intraperitoneal fat. However, there is no definite bowel wall thickening or obstruction. Normal appendix. No pelvic free fluid. The bladder is unremarkable. IMPRESSION: 1. No definite bowel wall thickening or obstruction. 2. Normal appendix. 3. Emphysema. ACT 112: Negative or not required by law. Electronically signed by: Tae Michael M.D. 09/06/2022 5:29 PM Discharge Plan Visit Data Chief Complaint: Abdominal Pain Stated Complaint: ABDOMINAL PAIN ED Provider: Oneil Streeter Discharge Problem: HANNA (acute kidney injury) Patient Disposition: Admitted As Inpatient Forms Stand Alone Forms: [facility], [facility] Emergency Department, Important Visit Information Prescriptions Prescriptions: No Action Marijuana 1 dose inhalation DIRECTED Rx Instructions: PER PT "RECREATIONAL". Referrals Referrals: PCP,NO [Primary Care Provider] -
[2022-09-06 14:01] LABS: Basophils # (auto) 0.04 K/uL (0-0.2); Basophils % (auto) 0.4 %; Eosinophils # (auto) 0.03 K/uL (0-0.50); Eosinophils % (auto) 0.3 %; Hematocrit (blood only) 52.7 % (42.0-52.0); Hemoglobin 18.8 g/dl (14.0-18.0); Immature Granulocytes # (auto) 0.02 K/uL (0.01-0.20); Immature Granulocytes % (auto) 0.2 %; Lymphocytes # (auto) 1.54 K/uL (1.2-3.4); Lymphocytes % (auto) 15.7 %; Mean Corpuscular Hemoglobin 31.1 pg (25.0-34.0); Mean Corpuscular Hgb Conc 35.7 g/dL (32.0-36.0); Mean Corpuscular Volume 87.1 fL (80.0-100.0); Mean Platelet Volume 8.8 fL (9.4-12.4); Monocytes # (auto) 0.78 K/uL (0.11-0.59); Monocytes % (auto) 7.9 %; Neutrophils # (auto) 7.42 K/uL (1.40-6.50); Neutrophils % (auto) 75.5 %; Platelet Count 342 K/uL (130-400); RDW Coefficient of Variation 13.6 % (11.5-14.5); RDW Standard Deviation 43.8 fL (36.4-46.3); Red Blood Count 6.05 M/uL (4.70-6.10); White Blood Count 9.83 K/ul (4.8-10.8)
[2022-09-06 14:22] LABS: BUN Creatinine Ratio 11.2 (10-20); Calcium 11.9 mg/dl (8.5-10.1); Creatinine Clr Calc Pharmacy 25.9 ml/min; Est GFR (African American) 37.8 ml/min; Est GFR (Non-African American) 32.6 ml/min; Potassium 3.4 mmol/L (3.5-5.1)
[2022-09-06 15:43] LABS: Albumin Level 6.9 gm/dl (3.4-5.0)
[2022-09-06 15:44] LABS: Albumin Globulin Ratio 2.1 (0.9-2); Bilirubin,Total 1.1 mg/dl (0.2-1.0); Globulin 3.3 gm/dl (2.5-4.0); Total Protein 10.2 gm/dl (6.0-8.3)
--- NOTE | 2022-09-06 17:31 | CT Scan Report ---
ABDOMEN AND PELVIS CT WITH ORAL CONTRAST CT DOSE: 246.71 mGy.cm HISTORY: diffuse abd pain, HANNA TECHNIQUE: Multiaxial CT images of the abdomen and pelvis were performed following the use of oral co ntrast. A dose lowering technique was utilized adhering to the principles of ALARA. COMPARISON STUDY: Abdomen and pelvis CT 08/15/2022. FINDINGS: Emphysema again noted at the lung bases. No pneumoperitoneum. No pneumatosis. No acute frac tures identified. The unenhanced liver, spleen, adrenal glands, pancreas, and kidneys are unremarkabl e. No renal or ureteral stones. No hydronephrosis. Normal gallbladder. Normal caliber abdominal aorta . No retroperitoneal lymphadenopathy. Suboptimal evaluation for bowel pathology due to the lack of in traperitoneal fat. However, there is no definite bowel wall thickening or obstruction. Normal appendi x. No pelvic free fluid. The bladder is unremarkable. IMPRESSION: 1. No definite bowel wall thickening or obstruction. 2. Normal appendix. 3. Emphysema. ACT 112: Negative or not required by law. Electronically signed by: Tae Michael M.D. 09/06/2022 5:29 PM
[2022-09-06 18:10] LABS: Appearance Urine Cloudy (Clear); Bacteria Urine Automated Negative (Negative); Bilirubin Urine Negative (Negative); Blood Urine Negative (Negative); Color Urine Yellow; Epithelial Cell Urine Auto 20-30 /lpf (0-5); Glucose Urine UA Negative (Negative); Ketones Urine Trace (Negative); Leukocyte Esterase Urine Negative (Negative); Nitrite Urine Negative (Negative); Protein Urine 1+ (Negative); Specific Gravity Urine 1.016 (1.000-1.030); Urobilinogen Urine Negative (Negative)
--- NOTE | 2022-09-06 18:18 | History & Physical Report ---
Date of Service September 06, 2022 Assessment & Plan (1) Abdominal pain in male: Plan: Highly suspicious of cannabis hyperemesis with improvement with hot showers Capsaicin cream Hot showers Acetaminophen PRN (2) HANNA (acute kidney injury): Plan: Suspect pre-renal. NSS 2L bolus given in ER. Continue LR @ 1.5x maintenance @ 120ml/hr. Repeat BMP in AM. (3) Hypercalcemia: Plan: Suspect most likely related to dehydration. Repeat with AM labs and is persistently elevated consider PTH testing. (4) Low body mass index (BMI): (5) Cannabis hyperemesis syndrome concurrent with and due to cannabis abuse: Plan VTE Prophylaxis - low risk Diet - clear liquids, advance diet as tolerated Disposition - admit to med/surg Admission and Anticipated Discharge Date Admission Date: Sep 06, 2022 History of Present Illness Chief Complaint: Abdominal pain Primary Care Provider: NO PCP Lynn Jaramillo is a 32 year old male who presents to the ER with abdominal pain, nausea, vomiting. Last bowel movement 2 days ago. He reports intermittent abdominal pain ongoing for the last 1-2 years. Episodes completely resolve in between. Usually last for 2-3 days and occasional he has come to the ER. Multiple previous CTs without acute pathology except for one episode of suspected incidental jejunal intussusception in 2019. Pain severity 5/10 in triage, currently 3/10. Latest episode ongoing for last 3 days getting progressively worse and not able to eat or drink. Hot showers help. He smokes "a lot" of marijuana daily but stopped 3-4 days ago right before his abdominal pain because his head felt cloudy. Smoked for the last 5-6 years. Patient was brought in by EMS and had Zofran 4 mg and Toradol 15 mg prehospital. In the ER Cr 2.51 from 1.04. He was diagnosed with HANNA and referred to medicine for admission and ongoing management of this. Allergies Allergy/AdvReac Type Severity Reaction Status Date / Time No Known Allergies Allergy Verified 09/06/22 14:15 Home Medications Medication Instructions Recorded Confirmed Type Marijuana 1 dose inhalation DIRECTED 09/20/21 09/06/22 History Past Med/Surg History Medical History Benzodiazepine overdose Gastritis, acute with hemorrhage History of marijuana use Left lumbar radiculitis Surgical History No pertinent past surgical history Social History Smoking Status: Former smoker Tobacco Type: Cigarettes Age Started Using Tobacco: 15; Age Quit Using Tobacco: 30; Second Hand Exposure: No; Hx Alcohol Use: No Hx Substance Use: Yes Last Used Substance: Days (ago) Preferred Language: Khmer Communication Ability: Effective Collator Operator Required: No Beliefs That Will Affect Care: None Current Living Situation Comment: With grandparents Feels Safe at Home: Yes Assistive Devices: None Review of Systems Review of Systems: All systems reviewed & are unremarkable except as noted in HPI & below Physical Exam Constitutional: well developed and + thin; + not well nourished and no acute distress Eyes: + anicteric sclerae; normal pupil size ENMT: Mouth: + dry oral mucous membranes Respiratory: normal respiratory effort, lungs clear to auscultation Cardiovascular: RRR, no murmur, no edema Gastrointestinal (Abdomen): Inspection/Auscultation: normal bowel sounds Percussion/Palpation: + abdomen tender (generalized) and abdomen soft; no guarding and abdomen not rigid Musculoskeletal: no cyanosis or clubbing, extremities motor strength 5/5 Skin: no rashes, warm and dry Neurologic: moves all extremities and awake; not confused Psychiatric: A+Ox3, euthymic affect Genitourinary: no CVA tenderness Results & Data Results & Data ([facility]) Vital Signs (Past 12 Hours) Vital Signs Temp Pulse Pulse Resp BP BP Pulse Ox 09/06/22 16:45 76 20 123/70 98 09/06/22 14:55 78 20 124/85 97 09/06/22 13:29 37 C 100 H 18 123/96 95 O2 Del Method 09/06/22 16:45 Room Air 09/06/22 14:55 Room Air 09/06/22 13:29 Room Air Laboratory Results Abnormal lab results 09/06/22 09/06/22 Range/Units 13:39 13:39 Hgb 18.8 H (14.0-18.0) g/dl Hct 52.7 H (42.0-52.0) % MPV 8.8 L (9.4-12.4) fL Neut # (Auto) 7.42 H (1.40-6.50) K/uL Porter # (Auto) 0.78 H (0.11-0.59) K/uL Sodium 135 L (136-145) mmol/L Potassium 3.4 L (3.5-5.1) mmol/L Chloride 89 L (98-107) mmol/L Anion Gap 16 H (3-11) BUN 28 H (6-23) mg/dl Creatinine 2.51 H (0.6-1.4) mg/dl Glucose 150 H (70-99(Fasting)) mg/dl Calcium 11.9 H (8.5-10.1) mg/dl Total Bilirubin 1.1 H (0.2-1.0) mg/dl Total Protein 10.2 H (6.0-8.3) gm/dl Albumin 6.9 H (3.4-5.0) gm/dl Albumin/Globulin Ratio 2.1 H (0.9-2) Diagnostic Findings ABDOMEN AND PELVIS CT WITH ORAL CONTRAST CT DOSE: 246.71 mGy.cm HISTORY: diffuse abd pain, HANNA TECHNIQUE: Multiaxial CT images of the abdomen and pelvis were performed following the use of oral contrast. A dose lowering technique was utilized adhering to the principles of ALARA. COMPARISON STUDY: Abdomen and pelvis CT 08/15/2022. FINDINGS: Emphysema again noted at the lung bases. No pneumoperitoneum. No pneumatosis. No acute fractures identified. The unenhanced liver, spleen, adre nal glands, pancreas, and kidneys are unremarkable. No renal or ureteral stones. No hydronephrosis. Normal gallbladder. Normal caliber abdominal aorta. No retroperitoneal lymphadenopathy. Suboptimal evaluation for bowel pathology due to the lack of intraperitoneal fat. However, there is no definite bowel wall thickening or obstruction. Normal appendix. No pelvic free fluid. The bladder is unremarkable. IMPRESSION: 1. No definite bowel wall thickening or obstruction. 2. Normal appendix. 3. Emphysema. Medications Administered ER medications given: Normal saline 1 L IV x2 Code Status & VTE Plan Code Status Full VTE Prophylaxis Plan VTE Prophylaxis will be ordered: No PG Care Time/CCT Total # of Minutes Spent Total Time Spent with Patient: Total time spent is greater than 50% in coordination of care (as documented) at patient's floor/unit and/or counseling patient: Coding Level of Care Code 07222 INT INP/OBS CARE 2/55MIN Diagnoses Abdominal pain in male R10.9 HANNA (acute kidney injury) N17.9 Hypercalcemia E83.52 Low body mass index (BMI) Cannabis hyperemesis syndrome concurrent with and due to cannabis abuse F12.188
[2022-09-06] MEDS ORDERED: POTASSIUM CHLORIDE CRTAB 20 MEQ TABCR PO STA (18:19)
[2022-09-06 18:25] LABS: Cast Urine Automated >30 /lpf (0-5)
[2022-09-06] MEDS ORDERED: FAMOTIDINE 20 MG in SYRINGE 3 ML IV ONE (18:29)
[2022-09-06] MEDS ORDERED: ACETAMINOPHEN 1,000 MG/100 ML VIAL IV STA (18:29)
[2022-09-06] MEDS ORDERED: CAPSAICIN CR 0.075% 60 GM TUBE EXT STA (18:30)
[2022-09-06] MEDS: LACTATED RINGER'S 1,000 ML IV SCH (19:10)
[2022-09-06] MEDS ORDERED: ONDANSETRON INJ 2 MG/ML 2 ML VIAL IV PRN (20:19)
[2022-09-06] MEDS ORDERED: ACETAMINOPHEN 325 MG TAB PO PRN (20:19)
[2022-09-06] MEDS ORDERED: CAPSAICIN CR 0.075% 60 GM TUBE EXT PRN (21:47)
[2022-09-06] MEDS ORDERED: diphenhydrAMINE Capsule 25 MG CAP PO ONE (22:41)
[2022-09-06] MEDS ORDERED: Flu Vaccine (Fluarix) 0.5mL SYR (Standard Dose) IM ONE (23:30)
[2022-09-07 00:18] LABS: Magnesium 2.7 mg/dl (1.7-2.4)
[2022-09-07] MEDS: LACTATED RINGER'S 1,000 ML IV SCH ×3 (02:29→19:18)
[2022-09-07 07:06] LABS: Basophils # (auto) 0.05 K/uL (0-0.2); Basophils % (auto) 0.9 %; Eosinophils # (auto) 0.11 K/uL (0-0.50); Hematocrit (blood only) 39.4 % (42.0-52.0); Hemoglobin 13.6 g/dl (14.0-18.0); Immature Granulocytes # (auto) 0.01 K/uL (0.01-0.20); Immature Granulocytes % (auto) 0.2 %; Lymphocytes # (auto) 2.25 K/uL (1.2-3.4); Lymphocytes % (auto) 41.1 %; Mean Corpuscular Hemoglobin 30.8 pg (25.0-34.0); Mean Corpuscular Hgb Conc 34.5 g/dL (32.0-36.0); Mean Corpuscular Volume 89.1 fL (80.0-100.0); Mean Platelet Volume 8.8 fL (9.4-12.4); Monocytes % (auto) 9.1 %; Neutrophils # (auto) 2.56 K/uL (1.40-6.50); Neutrophils % (auto) 46.7 %; Platelet Count 223 K/uL (130-400); RDW Coefficient of Variation 13.5 % (11.5-14.5); RDW Standard Deviation 44.5 fL (36.4-46.3); Red Blood Count 4.42 M/uL (4.70-6.10); White Blood Count 5.48 K/ul (4.8-10.8)
[2022-09-07] MEDS: FAMOTIDINE 20 MG in SYRINGE 3 ML IV SCH (07:33)
[2022-09-07 07:35] LABS: Albumin Level 4.1 gm/dl (3.4-5.0); BUN Creatinine Ratio 22.7 (10-20); Bilirubin,Total 1.1 mg/dl (0.2-1.0); Calcium 9.1 mg/dl (8.5-10.1); Creatinine Clr Calc Pharmacy 68.7 ml/min; Est GFR (African American) 119.2 ml/min; Est GFR (Non-African American) 102.9 ml/min; Magnesium 2.2 mg/dl (1.7-2.4); Phosphorus 3.1 mg/dl (2.5-4.9); Potassium 3.9 mmol/L (3.5-5.1); Total Protein 6.1 gm/dl (6.0-8.3)
[2022-09-07] MEDS: KETOROLAC TROMETHAMINE 15 MG/ML VIAL IV PRN (09:04)
[2022-09-07 09:54] LABS: Creatinine Urine Random 207.2 mg/dl; Protein Creatinine Ratio Urine 0.1 (0-0.2)
[2022-09-07 09:56] LABS: Amphetamines+Metham, Urine Neg (Neg); Barbiturates, Urine Neg (Neg); Benzodiazepine, Urine Neg (Neg); Cocaine, Urine Neg (Neg); MDMA (Ecstacy), Urine Neg (Neg); Methadone, Urine Neg (Neg); Opiate, Urine Neg (Neg); Phencyclidine, Urine Neg (Neg)
[2022-09-07] MEDS ORDERED: KETOROLAC TROMETHAMINE 15 MG/ML VIAL IV ONE (15:33)
--- NOTE | 2022-09-07 15:53 | Hospitalist Progress Note ---
Date of Service September 07, 2022 Assessment & Plan (1) Abdominal pain in male: Plan: Highly suspicious of cannabis hyperemesis with improvement with hot showers Capsaicin cream Hot showers Acetaminophen PRN However, says the pain got worse Will obtain Ct abdomen and pelvis to r/o any acute pathology (2) HANNA (acute kidney injury): Plan: Suspect pre-renal. NSS 2L bolus given in ER. Continue LR @ 1.5x maintenance @ 120ml/hr. Repeat BMP in AM. Resolved (3) Hypercalcemia: Plan: Suspect most likely related to dehydration. Repeat with AM labs and is persistently elevated consider PTH testing. (4) Low body mass index (BMI): Plan: Nutritional supplements (5) Cannabis hyperemesis syndrome concurrent with and due to cannabis abuse: Plan hopefully d/c in the next 24 hrs Admission and Anticipated Discharge Date Admission Date: September 06, 2022 Subjective patient seen and exaamined, by the bedside, still complains of lower abdominal pain Review of Systems Review of Systems: All systems reviewed are negative, apart from the ones contained in the history. Physical Exam Physical Exam: The patient is awake, alert and oriented 3, thin looking HEENT--PERRL, EOMI, mucous membranes and oropharynx mildly dry, edentulous Neck--supple. No JVD. No bruits. Thyroid normal, trachea midline, no a denopathy. Heart--normal S1 and S2. No murmurs, rubs or gallops. Lungs--clear bilaterally, no respiratory distress, no accessory muscle use. Abdomen--normal bowel sounds and soft. Mild epigastric and left sided abdominal pain Extremities--no cyanosis or clubbing. No edema. Dermatologic--normal skin turgor, normal color, no abnormal lymph nodes, no rash. Neurologic--cranial nerves II through XII grossly intact. Rheumatologic--normal range of motion. Psychiatric--normal affect. Results & Data Results & Data ([facility]) Vital Signs (Past 12 Hours) Vital Signs Temp Pulse Resp BP Pulse Ox O2 Del Method 09/07/22 14:53 99.0 F 63 16 108/67 94 Room Air 09/07/22 07:19 98.8 F 64 16 117/66 97 Room Air PG Care Time/CCT Total # of Minutes Spent Total Time Spent with Patient: Total time spent is greater than 50% in coordination of care (as documented) at patient's floor/unit and/or counseling patient: Coding Level of Care Code 59911 SUB INP/OBS CARE 2/35MIN Diagnoses Abdominal pain in male R10.9 HANNA (acute kidney injury) N17.9 Hypercalcemia E83.52 Low body mass index (BMI) Cannabis hyperemesis syndrome concurrent with and due to cannabis abuse F12.188 Time Spent (min) 35
--- NOTE | 2022-09-07 16:30 | CT Scan Report ---
ABDOMEN AND PELVIS CT WITHOUT CONTRAST CT DOSE: 233.10 mGycm HISTORY: Generalized pain. Nausea. Diarrhea. TECHNIQUE: Multiaxial CT images of the abdomen and pelvis were performed without contrast. A dose lo wering technique was utilized adhering to the principles of ALARA. COMPARISON STUDY: Abdomen and pelvis CT 09/06/2022. FINDINGS: Emphysema again noted. No pneumoperitoneum. No pneumatosis. No acute fractures identified. The unenhanced liver, gallbladder, pancreas, spleen, adrenal glands unremarkable. No renal stones or hydronephrosis. No retroperitoneal lymphadenopathy. Normal caliber abdominal aorta. No pelvic free fl uid or pelvic lymphadenopathy. Mild bladder wall thickening is likely due to underdistention. This is similar to the prior study. Suboptimal evaluation for bowel pathology due to the lack of intravenous contrast and intraperitoneal fat. There is residual contrast within the colon. Nondilated fluid-fill ed loops of large and small bowel can be seen in the setting of a gastroenteritis/diarrheal illness. No definite bowel wall thickening or obstruction. Normal appendix. IMPRESSION: 1. No definite bowel wall thickening or obstruction. 2. Normal appendix. 3. Emphysema. 4. Nondilated fluid-filled loops of large and small bowel can be seen in the setting of a gastroenter itis/diarrheal illness. ACT 112: Negative or not required by law. Electronically signed by: Tae Michael M.D. 09/07/2022 4:27 PM
[2022-09-07] MEDS ORDERED: ALBUTEROL 0.083% NEBU SOLN 3 ML VIAL NEB STA (19:55)
[2022-09-08] MEDS: LACTATED RINGER'S 1,000 ML IV SCH (04:58)
[2022-09-08] MEDS: KETOROLAC TROMETHAMINE 15 MG/ML VIAL IV PRN (05:12)
[2022-09-08] MEDS: FAMOTIDINE 20 MG in SYRINGE 3 ML IV SCH (10:41)
--- NOTE | 2022-09-08 11:14 | Discharge Summary ---
Date of Service September 08, 2022 Admission HPI Per Admitting Provider Lynn Jaramillo is a 32 year old male who presents to the ER with abdominal pain, nausea, vomiting. Last bowel movement 2 days ago. He reports intermittent abdominal pain ongoing for the last 1-2 years. Episodes completely resolve in between. Usually last for 2-3 days and occasional he has come to the ER. Multiple previous CTs without acute pathology except for one episode of suspected incidental jejunal intussusception in 2019. Pain severity 5/10 in triage, currently 3/10. Latest episode ongoing for last 3 days getting progressively worse and not able to eat or drink. Hot showers help. He smokes "a lot" of marijuana daily but stopped 3-4 days ago right before his abdominal pain because his head felt cloudy. Smoked for the last 5-6 years. Patient was brought in by EMS and had Zofran 4 mg and Toradol 15 mg prehospital. In the ER Cr 2.51 from 1.04. He was diagnosed with HANNA and referred to medicine for admission and ongoing management of this. 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 No JVD. No bruits. Thyroid normal, trachea midline, no adenopathy. Heart--normal S1 and S2. No murmurs, rubs or gallops. Lungs--clear bilaterally, no respiratory distress, no accessory muscle use. Abdomen--normal bowel sounds and soft. Mild epigastric and left sided abdominal pain Extremities--no cyanosis or clubbing. No edema. Dermatologic--normal skin turgor, normal color, no abnormal lymph nodes, no rash. Neurologic--cranial nerves II through XII grossly intact. Rheumatologic--normal range of motion. Psychiatric--normal affect. Discharge Data Allergies Allergy/AdvReac Type Severity Reaction Status Date / Time capsaicin AdvReac Redness of Verified 09/07/22 07:45 Skin Consultations 09/06/22 18:11 ED Decision to Admit Stat Ordered Studies 09/06/22 14:50 CT Abd and Pelvis [CT abd pelvis oral con only] Stat 09/07/22 15:34 CT abd pelvis wo con Routine Hospital Course (1) Abdominal pain in male: Highly suspicious of cannabis hyperemesis with improvement with hot showers Capsaicin cream Hot showers Acetaminophen PRN Now resolved CT abd x 2 were normal patient adviced to stop marijuana (2) HANNA (acute kidney injury): resolved (3) Hypercalcemia: Suspect most likely related to dehydration. Repeat with AM labs and is persistently elevated consider PTH testing. (4) Low body mass index (BMI): Nutritional supplements (5) Cannabis hyperemesis syndrome concurrent with and due to cannabis abuse: Plan d/c Total Time Total Time Spent Total Time Spent (In Minutes): 35 Discharge Plan Discharge Items Patient Disposition: Home - Self-Care Reason For Visit: HANNA Discharge Diagnosis: cyclical vomiting, HANNA Activity: Resume your previous activity Non-emergency contact: Primary Care Provider Call non-emergency contact if: you have any medication questions and your symptoms worsen Follow-up/Referrals: PCP,NO [Primary Care Provider] - Diet: Regular Addtl Attending Provider Instructions: Please make efforts to establish care with a primary care doctor Stop using marijuana Pending Studies at Discharge: No Stand-Alone Forms: [employer], Smoking Cessation Medications and DC Order Prescriptions: Discontinued Marijuana 1 dose inhalation DIRECTED Rx Instructions: PER PT "RECREATIONAL". Discharge Orders: Discharge Order (Routine); Ordered 09/08/22 Ordered By: Quentin Spencer Admission Data Admit Date/Time: 09/06/22 18:20 Attending Provider: Quentin Spencer Admit Provider: Ben Brown Primary Care Provider: PCP,NO Other Providers: Ben Brown Coding Level of Care Code HOSP INP/OBS DISCH >30 MIN Diagnoses Abdominal pain in male R10.9 HANNA (acute kidney injury) N17.9 Hypercalcemia E83.52 Low body mass index (BMI) Cannabis hyperemesis syndrome concurrent with and due to cannabis abuse F12.188 Time Spent (min) 35
[2022-09-08 22:57] LABS: Marijuana Quant, GCMS Urine 1642 ng/mL (<5)
== END 2022-09-08 12:57 | disposition home or self-care (01) | DRG 896 ==
LOC: ED 13:24 → SUATTDRO 18:20 → 3W 18:20

== ENCOUNTER 2023-04-20 17:02 | Inpatient (IN) ==
--- NOTE | 2023-04-20 17:09 | ED Triage Note ---
Date of Service April 20, 2023 History of Present Illness This patient was briefly evaluated while in triage. An abbreviated physical exam was performed. This patient is a 32-year-old Male who presents to the ED for evaluation of abdominal pain, n/v/d started this AM. Hx of the same, gastritis, hyperemesis, eri esophagitis sent by GI using prescription marijuana at bedtime for sleep Physical Exam GENERAL: ill appearing in a wheelchair CARDIOVASCULAR: RRR RESPIRATORY: CTA ABDOMEN: BS x 4. diffusely TTP Initial orders for labs and / or imaging were placed and patient was placed in the waiting area until a bed is available. Please see further documentation for the full ED course. MDM / Impression Impression Impression: HANNA (acute kidney injury), Nausea & vomiting, Abdominal pain, Diarrhea
[2023-04-20] MEDS ORDERED: SODIUM CHLORIDE 0.9% 1,000 ML IV SCH (17:10)
[2023-04-20] MEDS ORDERED: PROCHLORPERAZINE 1 ML IV ONE (17:11)
[2023-04-20] MEDS ORDERED: diphenhydrAMINE 50 MG/ML VIAL IV STA (17:11)
[2023-04-20] MEDS ORDERED: KETOROLAC TROMETHAMINE 15 MG/ML VIAL IV ONE (17:11)
[2023-04-20] MEDS ORDERED: FAMOTIDINE 20MG IV PUSH 20 MG/5 ML SYR IV STA (17:11)
[2023-04-20 18:25] LABS: Basophils # (auto) 0.07 K/uL (0.00-0.20); Basophils % (auto) 0.5 %; Eosinophils # (auto) 0.01 K/uL (0.00-0.50); Eosinophils % (auto) 0.1 %; Hematocrit (blood only) 56.1 % (42.0-52.0); Hemoglobin 19.3 g/dl (14.0-18.0); Immature Granulocytes # (auto) 0.08 K/uL (0.01-0.20); Immature Granulocytes % (auto) 0.6 %; Lymphocytes # (auto) 1.12 K/uL (1.20-3.40); Lymphocytes % (auto) 7.7 %; Mean Corpuscular Hemoglobin 31.2 pg (25.0-34.0); Mean Corpuscular Hgb Conc 34.4 g/dL (32.0-36.0); Mean Corpuscular Volume 90.6 fL (80.0-100.0); Mean Platelet Volume 8.7 fL (9.4-12.4); Monocytes # (auto) 0.85 K/uL (0.11-0.59); Monocytes % (auto) 5.9 %; Neutrophils # (auto) 12.39 K/uL (1.40-6.50); Neutrophils % (auto) 85.2 %; Platelet Count 351 K/uL (130-400); RDW Coefficient of Variation 14.2 % (11.5-14.5); RDW Standard Deviation 45.8 fL (36.4-46.3); Red Blood Count 6.19 M/uL (4.70-6.10); White Blood Count 14.52 K/ul (4.8-10.8)
[2023-04-20 19:02] LABS: Alanine Aminotransferase 23 U/L (7-52); Anion Gap 21 (3-11); Aspartate Aminotransferase 25 U/L (13-39); Blood Urea Nitrogen 28 mg/dl (6-23); Calcium 13.1 mg/dl (8.6-10.3); Carbon Dioxide 24 mmol/L (21-32); Chloride 92 mmol/L (98-107); Est GFR (African American) 37.2 ml/min; Est GFR (Non-African American) 32.1 ml/min; Glucose 203 mg/dl (70-99(Fasting)); Potassium 4.6 mmol/L (3.5-5.1); Sodium 137 mmol/L (136-145)
[2023-04-20] MEDS ORDERED: PANTOprazole 40 MG in SYRINGE 0 ML IV ONE (19:16)
[2023-04-20] MEDS ORDERED: SODIUM CHLORIDE 0.9% 1,000 ML IV ONE (19:16)
[2023-04-20] MEDS ORDERED: ACETAMINOPHEN 1,000 MG/100 ML VIAL IV STA (19:16)
--- NOTE | 2023-04-20 19:20 | Emergency Department Note ---
Impression & Plan HANNA (acute kidney injury), Nausea & vomiting, Abdominal pain, Diarrhea, Hyperglycemia ED Provider Note ED Provider Note NAME: JOSE MEADOWS JR AGE:32 SEX: Male : 1990 ARRIVES VIA: Private vehicle INFORMANT: Patient ED PROVIDER(s): Kristie Rogers DO CHIEF COMPLAINT: Nausea, vomiting, diarrhea, abdominal pain HPI: This is a 32-year-old male presents emergency department due to abrupt onset of nausea, vomiting, diarrhea becoming abdominal pain that began earlier today. Patient states this is similar to prior episodes. Patient states he does follow with GI, Dr. Villalba, as he has a history of gastric and esophageal candidiasis. Patient states he just finished his last round of treatment 2 weeks ago. Patient denies any recent travel, new medication, or other dietary change. He denies any known sick contact. Patient denies any hematemesis or hematochezia. He denies fevers or chills. PAST MEDICAL HISTORY:See Below PAST SURGICAL HISTORY:See Below FAMILY HISTORY:See Below SOCIAL HISTORY:See Below HOME MEDICATIONS:See Below ALLERGIES:See Below VITALS:See Below PHYSICAL EXAMINATION: GENERAL: alert, well appearing, cachectic, no distress, non-toxic EYE EXAM: normal conjunctiva, PERRL and EOM's grossly intact OROPHARYNX: no exudate, no erythema, lips, buccal mucosa, and tongue normal and mucous membranes are dry, edentulous NECK: supple, no nuchal rigidity, no adenopathy, non-tender LUNGS: Clear to auscultation. Normal chest wall mechanics, no w/r/r HEART: no murmurs, S1 normal and S2 normal ABDOMEN: abdomen soft, generalized tenderness with palpation, normo-active bowel sounds, no masses, no rebound or guarding. BACK: Back is symmetrical on inspection and there is no deformity, no midline tenderness, no CVA tenderness. SKIN: no rashes, petechiae, orbruising UPPER EXTREMITIES: upper extremities are grossly normal. FROM, nml pulses b/l. LOWER EXTREMITIES: No pitting edema. FROM, nml pulses b/l. NEURO EXAM: Normal sensorium, cranial nerves II-XII grossly intact, normal speech, no facial droop,nogross weakness of arms, no gross weakness of legs. Gross sensation intact. No ataxia. Vital Signs: reviewed and remarkable Differential Diagnosis: Gastroenteritis, Food Borne, Esophageal Perforation, Electrolyte Abnormality, Dehydration, CHS, UTI/Pyelonephritis, Bowel Obstruction, GI bleed, mesenteric ischemia, amongst other pathology entertained. MEDICAL DECISION MAKING: This is a 32 yo male who presents with n/v/d and abdominal pain. He was initially seen in a waiting room area as he presented on a day of high volume and acuity. Labs drawn and sent, IV established, and once in a patient room the patient was placed on telemetry. He was given multiple medications for nausea and pain in addition to IVF. He was found to have HANNA. Due to concern for HANNA and ongoing symptoms despite medications here after 2 L of IVF, case discussed with hospitalist team for additional evaluation and mgmt. I discussed all results with the patient and family at bedside, they verbalized understanding and were in agreement with the plan. At this time I do not suspect perf, GI bleed, mesenteric ischemia, vascular etiology of symptoms, bacteremia/sepsis. Consultation(s): 2000: Discussed with Dr. Iqbal, [facility] hospitalist team. ER Treatment Provided: See below Diagnostics Interpreted By Me: -ECG: [] -Cardiac Monitoring: An order was placed for continuous cardiac monitoring. The monitor shows a rate of 66 with normal sinus rhythm. -Laboratory studies: As stated above and show below. -Imaging studies: [] Triage Nursing Note Reviewed Prior/Outside Records Reviewed - prior GI evaluation reviewed Past Med/Surg History Medical History HANNA (acute kidney injury) Benzodiazepine overdose age 17 Cannabis hyperemesis syndrome concurrent with and due to cannabis abuse medical marijuana>"told to quit and haven't used any for 5-6 days" Gastritis, acute with hemorrhage History of inhaled steroid therapy "has no idea why he has his inhaler, but PCP gave it to him to use" Surgical History History of dental surgery all teeth pulled, no dentures History of open heart surgery as an infant>"thinks they had a couple of clogged arteries, couple of stents" Family History Mother Diabetes Grandmother Diabetes Grandfather Hypertension Myocardial infarction Stroke Prostate cancer Denies family history of Ovarian cancer Breast cancer Colorectal cancer Social History Smoking Status: Current every day smoker Tobacco Type: Cigarettes Age Started Using Tobacco: 15; Age Quit Using Tobacco: 30; Cigarettes Per Day: 5-10; Second Hand Exposure: Yes; Do You Dip or Chew Tobacco: No; Tobacco Cessation Education Requested by Patient: No Hx Alcohol Use: No Hx Substance Use: Yes Last Used Substance: Unknown Last Used Substance Other:: last use 5-6 days ago>told to quit Preferred Language: Canadian Communication Ability: Effective Heel Compressor Required: No Beliefs That Will Affect Care: None Current Living Situation: Alone Current Living Situation Comment: With grandparents Other Information That Helps Us Care for You: No Feels Safe at Home: Yes Safety Concerns: Feels Safe At This Time Assistive Devices: None Allergies Allergies Allergy/AdvReac Type Severity Reaction Status Date / Time No Known Allergies Allergy Verified 03/18/23 14:54 Home Meds Previous Rx's Medication Instructions Recorded pantoprazole 40 mg tablet,delayed 40 mg PO DAILY #30 tabs 03/18/23 release Results & Data (ED) Vital Signs Vital Signs - 24 hr 04/20/23 17:07 Temperature 36.8 C Temperature Source Temporal Artery Scan Pulse Rate 98 H Pulse Rhythm Regular Pulse Strength Normal Respiratory Rate 20 Respiratory Effort / Characteristics Non-Labored Spontaneous Respiratory Depth Normal Respiratory Pattern Regular Blood Pressure 133/90 Blood Pressure Mean 104 Blood Pressure Position Sitting Pulse Oximetry 97 Oxygen Delivery Method Room Air Sepsis Recent Fever Within 48 Hours No Sepsis New/Unexplained Change in Mental Status No Sepsis Action Taken by Nursing No Action Required Laboratory Data 04/20/23 18:10 04/20/23 18:10 Lab Results 04/20/23 04/20/23 Range/Units 18:10 18:10 WBC 14.52 H (4.8-10.8) K/ul RBC 6.19 H (4.70-6.10) M/uL Hgb 19.3 H (14.0-18.0) g/dl Hct 56.1 H (42.0-52.0) % MCV 90.6 (80.0-100.0) fL MCH 31.2 (25.0-34.0) pg MCHC 34.4 (32.0-36.0) g/dL RDW Std Deviation 45.8 (36.4-46.3) fL RDW Coeff of Erika 14.2 (11.5-14.5) % Plt Count 351 (130-400) K/uL MPV 8.7 L (9.4-12.4) fL Immature Gran % (Auto) 0.6 % Neut % (Auto) 85.2 % Lymph % (Auto) 7.7 % Ada % (Auto) 5.9 % Eos % (Auto) 0.1 % Baso % (Auto) 0.5 % Neut # (Auto) 12.39 H (1.40-6.50) K/uL Lymph # (Auto) 1.12 L (1.20-3.40) K/uL Ada # (Auto) 0.85 H (0.11-0.59) K/uL Eos # (Auto) 0.01 (0.00-0.50) K/uL Baso # (Auto) 0.07 (0.00-0.20) K/uL Immature Gran # (Auto) 0.08 (0.01-0.20) K/uL Sodium 137 (136-145) mmol/L Potassium 4.6 (3.5-5.1) mmol/L Chloride 92 L (98-107) mmol/L Carbon Dioxide 24 (21-32) mmol/L Anion Gap 21 H (3-11) BUN 28 H (6-23) mg/dl Creatinine 2.54 H (0.6-1.4) mg/dl Est Cr Clr Drug Dosing Not Reportable Est GFR ( Amer) 37.2 ml/min Est GFR (Non-Af Amer) 32.1 ml/min BUN/Creatinine Ratio 11.0 (10-20) Glucose 203 H (70-99(Fasting)) mg/dl Calcium 13.1 H* (8.6-10.3) mg/dl Total Bilirubin 1.2 H (0.2-1.0) mg/dl AST 25 (13-39) U/L ALT 23 (7-52) U/L Alkaline Phosphatase 74 (34-104) U/L Total Protein 10.9 H (6.0-8.3) gm/dl Albumin 7.5 H (3.4-5.0) gm/dl Globulin 3.4 (2.5-4.0) gm/dl Albumin/Globulin Ratio 2.2 H (0.9-2) Lipase 10 L (11-82) U/L Administered Medications Sodium Chloride (Nss) 1,000 mls @ 150 mls/hr IV .Q6H40M NIKIA Stop: 04/21/23 11:13 Last Admin: 04/20/23 22:08 Dose: 150 mls/hr Documented By: KSC Discontinued Medications Diphenhydramine HCl (Diphenhydramine 50 Mg/Ml Vial) 50 mg IV NOW STA Stop: 04/20/23 17:12 Last Admin: 04/20/23 20:43 Dose: Not Given Documented By: QGV Sodium Chloride (Nss) 1,000 mls @ 999 mls/hr IV .Q1H1M NIKIA Stop: 04/20/23 18:10 Last Infusion: 04/20/23 20:55 Dose: 0 mls/hr Documented By: Admin: 04/20/23 18:14 Dose: 999 mls/hr Documented By: SLB Famotidine (Pepcid 20mg Iv Push) 20 mg in 5 mls @ 2.5 mls/min IV NOW STA Stop: 04/20/23 17:12 Last Admin: 04/20/23 18:13 Dose: 2.5 mls/min Documented By: SLB Prochlorperazine (Compazine) 1 mls @ 1 mls/min IV ONE ONE Stop: 04/20/23 17:12 Last Admin: 04/20/23 20:39 Dose: 1 mls/min Documented By: QGV Sodium Chloride (Nss) 1,000 mls @ 999 mls/hr IV .Q1H1M ONE Stop: 04/20/23 20:16 Last Infusion: 04/20/23 21:54 Dose: 0 mls/hr Documented By: Admin: 04/20/23 20:43 Dose: 999 mls/hr Documented By: QGV Pantoprazole Sodium 40 mg/ (Syringe) 10 mls @ 5 mls/min IV NOW ONE Stop: 04/20/23 19:17 Last Admin: 04/20/23 20:00 Dose: 5 mls/min Documented By: SEJAL Acetaminophen (Ofirmev) 1,000 mg in 100 mls @ 400 mls/hr IV NOW STA Stop: 04/20/23 19:30 Last Infusion: 04/20/23 20:55 Dose: 0 mls/hr Documented By: Admin: 04/20/23 19:49 Dose: 400 mls/hr Documented By: SEJAL Ketorolac Tromethamine (Ketorolac Tromethamine 15 Mg/Ml Vial) 10 mg IV NOW ONE Stop: 04/20/23 17:12 Last Admin: 04/20/23 18:13 Dose: 10 mg Documented By: MELVIN Morphine Sulfate (Morphine Sulfate 2 Mg/Ml Carp) 2 mg IV NOW STA Stop: 04/20/23 20:04 Last Admin: 04/20/23 20:39 Dose: 2 mg Documented By: QGV Prochlorperazine (Prochlorperazine 5 Mg/Ml 2 Ml Vial) Confirm Administered Dose 10 mg .ROUTE .STK-MED ONE Stop: 04/20/23 20:39 Last Admin: 04/20/23 20:57 Dose: Not Given Documented By: QGV Discharge Plan Visit Data Chief Complaint: Abdominal Pain Stated Complaint: VOMIT, EXTREME ABD PAIN ED Provider: Kristie Rogers Discharge Problem: HANNA (acute kidney injury), Nausea & vomiting, Abdominal pain, Diarrhea, Hyperglycemia Patient Disposition: Admitted As Inpatient Discharge Instructions Interventions: ED Discharge Assessment Last Done: 04/20/23 21:38
[2023-04-20 19:30] LABS: Albumin Globulin Ratio 2.2 (0.9-2); Albumin Level 7.5 gm/dl (3.4-5.0); Alkaline Phosphatase 74 U/L (34-104); Bilirubin,Total 1.2 mg/dl (0.2-1.0); Globulin 3.4 gm/dl (2.5-4.0); Lipase 10 U/L (11-82); Total Protein 10.9 gm/dl (6.0-8.3)
[2023-04-20] MEDS ORDERED: MoRPHine SULFATE 2 MG/ML CARP IV STA (20:03)
--- NOTE | 2023-04-20 20:23 | History & Physical Report ---
Date of Service April 20, 2023 Assessment & Plan (1) HANNA (acute kidney injury): Plan: -Cr 2.54 on admission -Likely pre-renal azotemia/volume depletion from emesis losses -Continue aggressive fluid repletion -Monitor CMP (2) Dehydration: Plan: -Dehydration secondary to multiple rounds of emesis likely due to cannabinoid hyperemesis -Fluid repletion ongoing- NSS 125 cc/hr (3) Nausea & vomiting: Plan: -Likely cannabinoid hyperemesis -Zofran PRN nausea -NPO for now, advance diet as nausea attenuates (4) Abdominal pain: Plan: -Likely due to gastritis + cannabinoid hyperemesis -IV Tylenol PRN pain, morphine PRN for breakthrough though cautious use given pt 's previous _ active history of substance use disorders -Deferring CTAP at present -GI consulted for AM (5) Hypercalcemia: Plan: -Ca 13.1 on admission, albumin 7.5 -Corrected calcium 10.3 -Continue IVF repletion as above, deferring bisphosphonate/calcitonin -Monitor Ca (6) Tobacco use disorder: Plan: -Currently active tobacco use in pre-contemplative stage -Offered nicotine patch, pt declined (7) Gastritis: Plan: -Noted history of recent gastritis, EGD done in 01/2023 -GI consult as above -Continue pantoprazole, PO converted to IV (8) Polycythemia: Plan: -Hgb 19.3 on admission -Likely hemoconcentration from volume depletion -Monitor CBC (9) Leukocytosis: Plan: -WBC 14.5 on admission -Afebrile, no reported fever/chills, low suspicion for acute infection -Likely hemoconcentrated from volume depletion -Monitor CBC (10) Hyperbilirubinemia: Plan: -Mild indirect hyperbilirubinemia with TB 1.2 without jaundice/icterus on exam -Likely reactive -Monitor CMP Plan FENGI: NPO, IVF Code status: Full DVT prophylaxis: Low-risk Isolation: None Disposition: Medical/surgical History of Present Illness Chief Complaint: Abdominal pain Primary Care Provider: Armando Otto DO Pt is 32 yo M with PMH tobacco use, cannabis use, recent gastritis with candidal esophagitis presenting with abdominal pain. Pt reports onset of sudden lower abdominal pain- sharp, 8/10 severity this morn ing at about 6 AM. Reports associated nausea and up to 10 episodes of NBNB emesis since without any oral intake. He has had similar symptoms intermittently over the last few months and recently completed treatment for candidal esophagitis. Regularly follows with GI and did have EGD in 01/2023. Denies any other symptoms. Pt arrived to ER hemodynamically stable. Initial evaluation significant for WBC 14.5, Hgb 19.3, AG 21, Cr 2.54, Ca 13.1, TB 1.2. ER interventions include famotidine 20 mg IV, Toradol 10 mg IV, Tylenol 1000 mg IV, pantoprazole 40 mg IV, 1L NSS bolus. At present, pt reports continued pain and nausea. He does report some mild improvement with fluid repletion. States these symptoms are identical to his previous bouts of gastritis. He does smoke 1 bowl of marijuana nightly and about 5-10 cigarettes daily. Allergies Allergy/AdvReac Type Severity Reaction Status Date / Time No Known Allergies Allergy Verified 03/18/23 14:54 Home Medications Medication Instructions Recorded Confirmed Type pantoprazole 40 mg tablet,delayed 40 mg PO DAILY #30 tabs 03/18/23 04/20/23 Rx release Past Med/Surg History Medical History HANNA (acute kidney injury) Benzodiazepine overdose age 17 Cannabis hyperemesis syndrome concurrent with and due to cannabis abuse medical marijuana>"told to quit and haven't used any for 5-6 days" Gastritis, acute with hemorrhage History of inhaled steroid therapy "has no idea why he has his inhaler, but PCP gave it to him to use" Surgical History History of dental surgery all teeth pulled, no dentures History of open heart surgery as an infant>"thinks they had a couple of clogged arteries, couple of stents" Family History Mother Diabetes Grandmother Diabetes Grandfather Hypertension Myocardial infarction Stroke Prostate cancer Denies family history of Ovarian cancer Breast cancer Colorectal cancer Social History Smoking Status: Current every day smoker Tobacco Type: Cigarettes Age Started Using Tobacco: 15; Age Quit Using Tobacco: 30; Cigarettes Per Day: 5-10; Second Hand Exposure: Yes; Do You Dip or Chew Tobacco: No; Tobacco Cessation Education Requested by Patient: No Hx Alcohol Use: No Hx Substance Use: Yes Last Used Substance: Unknown Last Used Substance Other:: last use 5-6 days ago>told to quit Preferred Language: Portuguese Communication Ability: Effective Automation Engineering Manager Required: No Beliefs That Will Affect Care: None Current Living Situation: Alone Current Living Situation Comment: With grandparents Other Information That Helps Us Care for You: No Feels Safe at Home: Yes Safety Concerns: Feels Safe At This Time Assistive Devices: None Review of Systems Review of Systems: Per HPI/Subjective Physical Exam Physical Exam: General: no acute distress, disheveled HEENT: PERRL, EOMI, conjunctivae clear without injection, anicteric sclerae, dry mucous membranes, clear oropharynx without exudate or erythema Neck: supple, trachea midline, no thyromegaly, no JVD, no cervical lymphadenopathy CV: RRR, normal S1 and S2, no murmurs Resp: CTAB, no increased work of breathing, no crackles or wheezes Abd: Soft, tender to epigastrium and periumbilical area, nondistended, no guarding or rebound, no hepatosplenomegaly MSK: Normal bulk of all four extremities Neuro: AOx3, no focal motor or sensory deficits Skin: no rashes or lesions, warm and dry Ext: no LE peripheral edema or erythema, capillary refill <2s in all four extremities, 2+ LE peripheral pulses b/l Results & Data Results & Data Vital Signs (Past 12 Hours) Vital Signs Temp Pulse Resp BP Pulse Ox O2 Del Method 04/20/23 17:07 36.8 C 98 H 20 133/90 97 Room Air Supervising Physician Co-Signing Physician Notes Attending addendum: I have physically seen this patient, have supervised the medical residents activities, and agree with the H&P unless as otherwise noted. Assessment and Plan: Acute kidney injury- Creatinine on admission 2.54, with base 1.13 Status post 2 L normal saline in the ED Prerenal secondary to acute volume loss from nausea and vomiting Continue IV fluid rehydration with NSS at 125 MLS per hour Follow serial CBC with differential, renal function panel, and magnesium level in a.m. All laboratories are still suggesting of hypovolemia and significant dehydration including the following: Calcium 13.1, albumin 7.5, glucose 203, hemoglobin 19.3, hematocrit 56.1 and WBC 14.52 Nausea and vomiting/abdominal pain/GERD/gastritis- History of cannabinol hyperemesis syndrome Admits to smoking a bowl of marijuana daily Cessation counseling Continue pantoprazole 40 mg daily Tobacco use disorder- Cessation counseling Resident Activity Tracking Resident Involvement: Resident Care Provided Care Provided: Adult [facility]
[2023-04-20] MEDS ORDERED: PROCHLORPERAZINE 5 MG/ML 2 ML VIAL ONE (20:38)
[2023-04-20] MEDS ORDERED: ONDANSETRON INJ 2 MG/ML 2 ML VIAL IV PRN (21:54)
[2023-04-20] MEDS ORDERED: ACETAMINOPHEN 1,000 MG/100 ML VIAL IV PRN (21:54)
[2023-04-20] MEDS: SODIUM CHLORIDE 0.9% 1,000 ML IV SCH (22:08)
[2023-04-21] MEDS: SODIUM CHLORIDE 0.9% 1,000 ML IV SCH (04:12)
[2023-04-21] MEDS: MoRPHine SULFATE 2 MG/ML CARP IV PRN ×2 (04:12→10:53)
--- NOTE | 2023-04-21 04:18 | Billing Data ---
Date of Service April 21, 2023 Coding Level of Care Code 64522 INT INP/OBS CARE
[2023-04-21 04:37] LABS: Appearance Urine Cloudy (Clear); Bacteria Urine Automated Negative (Negative); Bilirubin Urine Negative (Negative); Blood Urine Negative (Negative); Color Urine Yellow; Epithelial Cell Urine Auto >30 /lpf (0-5); Glucose Urine UA Negative (Negative); Ketones Urine 1+ (Negative); Leukocyte Esterase Urine Negative (Negative); Nitrite Urine Negative (Negative); Protein Urine 1+ (Negative); RBC Urine Automated 0-4 /hpf (0-4); Urobilinogen Urine Negative (Negative)
[2023-04-21 04:50] LABS: Mucus Urine Present (None Prsent)
[2023-04-21 04:55] LABS: Amphetamines+Metham, Urine Neg (Neg); Barbiturates, Urine Neg (Neg); Benzodiazepine, Urine Neg (Neg); Cocaine, Urine Neg (Neg); MDMA (Ecstacy), Urine Neg (Neg); Methadone, Urine Neg (Neg); Opiate, Urine Pos (Neg); Phencyclidine, Urine Neg (Neg)
--- NOTE | 2023-04-21 06:50 | Hospitalist Progress Note ---
Date of Service April 21, 2023 Assessment & Plan (1) HANNA (acute kidney injury): (2) Dehydration: (3) Nausea & vomiting: (4) Abdominal pain: (5) Hypercalcemia: (6) Tobacco use disorder: (7) Gastritis: (8) Polycythemia: (9) Leukocytosis: (10) Hyperbilirubinemia: Plan #HANNA Cr 2.54 on admission Likely pre renal Fluid repletion #Dehydration 2/2 multiple emesis likely cannibis hyperemesis NSS 125 cc/hr #Nausea/Vomiting Zofran PRN Advance diet as tolerated #Abdominal Pain Gastritis flare +/- hyperemesis Pain control tylenol, morphine GI consult #Hypercalcemia 13.1 albumin 7.5 Corrects to 10.3 IVF replete #Gastritis Recent gastritis, s/p EGD 01/2023 GI consult Pantoprazole #Polycythemia 19.3 on admission, suspect hemoconcentration #Tobacco Use Dx Precontemplative Nicotine patch declined #Leukocytosis 14.5 on admission, suspect hemoconcentration Low suspicion for infection #Hyperbilirubinemia mild, indirect, likely reactive FENGI: NPO, IVF Code status: Full DVT prophylaxis: Low-risk Isolation: None Disposition: Medical/surgical Admission and Anticipated Discharge Date Admission Date: April 20, 2023 Subjective 32 yo PMHx tobacco use, cannabis use, recent gastritis with candidiasis admitted with abdominal pain. This AM: Review of Systems Review of Systems: reviewed, per HPI Physical Exam Constitutional: General: patient resting comfortably, NAD, non-toxic in appearance, AA&O x 4, answers questions appropriately and follows commands. Skin: warm, dry, intact HEENT: NC/AT, anicteric sclera, conjunctiva without injection, moist mucus membranes, trachea midline, no thyromegaly, no JVD Heart: +S1/S2, regular, no m/r/g Lungs: equal air entry bilaterally, no rales/rhonchi/wheezes Abd: +BS, soft, NT/ND, no masses/organomegaly/ascites Ext: warm, no clubbing/cyanosis or edema Neuro: nonfocal, patient AA&O x 4, speech intact, no facial droop, moving all extremities on command. Results & Data Results & Data Vital Signs (Past 12 Hours) Vital Signs Temp Pulse Pulse Resp BP Pulse Ox O2 Del Method 04/20/23 21:57 Room Air 04/20/23 21:55 37.1 C 64 16 144/97 H 95 Room Air 04/20/23 20:50 58 L 18 123/82 95 Room Air 04/20/23 20:46 66
[2023-04-21 08:35] LABS: Hematocrit (blood only) 40.7 % (42.0-52.0); Hemoglobin 14.5 g/dl (14.0-18.0); Mean Corpuscular Hemoglobin 31.9 pg (25.0-34.0); Mean Corpuscular Hgb Conc 35.6 g/dL (32.0-36.0); Mean Corpuscular Volume 89.6 fL (80.0-100.0); Mean Platelet Volume 9.1 fL (9.4-12.4); Platelet Count 227 K/uL (130-400); RDW Coefficient of Variation 13.6 % (11.5-14.5); RDW Standard Deviation 44.7 fL (36.4-46.3); Red Blood Count 4.54 M/uL (4.70-6.10); White Blood Count 7.82 K/ul (4.8-10.8)
[2023-04-21 09:14] LABS: Albumin Level 4.5 gm/dl (3.4-5.0); BUN Creatinine Ratio 33.7 (10-20); Bilirubin,Total 0.8 mg/dl (0.2-1.0); Calcium 9.2 mg/dl (8.6-10.3); Creatinine Clr Calc Pharmacy 69.4 ml/min; Est GFR (African American) 117.8 ml/min; Est GFR (Non-African American) 101.6 ml/min; Globulin 2.3 gm/dl (2.5-4.0); Potassium 4.2 mmol/L (3.5-5.1); Total Protein 6.8 gm/dl (6.0-8.3)
--- NOTE | 2023-04-21 10:44 | Gastrointestinal Consultation ---
Date of Consultation April 21, 2023 Assessment & Plan (1) Dehydration: (2) Nausea & vomiting: (3) HANNA (acute kidney injury): Plan Patient is a 32 y.o. male with a history of cannabis and tobacco use admitted with returning abdominal pain as well as n/v upon discontinuation of P antoprazole, now improved on treatment. -As he remains clinically improved and hemodynamically stable, no plan for repeat EGD at this time. -Okay to advance diet as tolerated. -I will refill his Pantoprazole for a 90 day supply to aid in medication compliance. -Patient is working toward efforts to discontinue marijuana use. -Stable for discharge with ongoing outpatient GI follow up from our perspective. Thank you for allowing us to participate in the care of this patient. If you have any questions or concerns, please do not hesitate to contact us. Supervising Physician Co-Signing Physician Notes Agree with DENNIS Chacon as above Patient was discharged prior to my evaluation. History of Present Illness Reason for Consultation: Abdominal pain Requesting Physician: Dr. Galvan Attending Physician: Jt Baez DO History of Present Illness Patient is a 32 y.o. known to our office recently diagnosed with eri esophagitis and gastritis with suspected CHS. 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 Reports severe lower abdominal pain. Since admission, he states his symptoms have significantly improved now that he has been resumed on PPI therapy. Denies any abdominal pain, nausea or overt GIB. He is hemodynamically stable. Requests discharge to home today. Remains NPO. Allergies Allergy/AdvReac Type Severity Reaction Status Date / Time No Known Allergies Allergy Verified 03/18/23 14:54 Home Medications Medication Instructions Recorded Confirmed Type pantoprazole 40 mg tablet,delayed 40 mg PO DAILY #30 tabs 03/18/23 04/20/23 Rx release Patient History Medical History HANNA (acute kidney injury) Benzodiazepine overdose age 17 Cannabis hyperemesis syndrome concurrent with and due to cannabis abuse medical marijuana>"told to quit and haven't used any for 5-6 days" Gastritis, acute with hemorrhage History of inhaled steroid therapy "has no idea why he has his inhaler, but PCP gave it to him to use" Surgical History History of dental surgery all teeth pulled, no dentures History of open heart surgery as an >"thinks they had a couple of clogged arteries, couple of stents" Family History Mother Diabetes Grandmother Diabetes Grandfather Hypertension Myocardial infarction Stroke Prostate cancer Denies family history of Ovarian cancer Breast cancer Colorectal cancer Social History Smoking Status: Current every day smoker Tobacco Type: Cigarettes Age Started Using Tobacco: 15; Age Quit Using Tobacco: 30; Cigarettes Per Day: 5-10; Second Hand Exposure: Yes; Do You Dip or Chew Tobacco: No; Hx Alcohol Use: No Hx Substance Use: Yes Last Used Substance: Unknown Last Used Substance Other:: last use 5-6 days ago>told to quit Preferred Language: Persian Communication Ability: Effective It Architect Required: No Beliefs That Will Affect Care: None Current Living Situation: Alone Current Living Situation Comment: With grandparents Feels Safe at Home: Yes Assistive Devices: None Review of Systems Review of Systems: All systems reviewed & are unremarkable except as noted in HPI & below Physical Exam Constitutional: WD/WN, vitals as above Eyes: EOM intact bilaterally Neck: normal appearance Respiratory: normal respiratory effort, lungs clear to auscultation Cardiovascular: Rate/Rhythm: regular rate and regular rhythm Heart Sounds: no gallop and no murmur Gastrointestinal (Abdomen): normal bowel sounds, soft, nontender, no hepatosplenomegaly Inspection/Auscultation: abdomen not distended Musculoskeletal: Extremities: no cyanosis no lower extremity edema Skin: no rashes, warm and dry Neurologic: moves all extremities Psychiatric: A+Ox3, euthymic affect Results & Data Vital Signs (Past 12 Hours) Vital Signs Temp Pulse Resp BP Pulse Ox O2 Del Method 04/21/23 08:15 Room Air 04/21/23 07:02 36.8 C 86 18 113/67 93 Room Air PG Care Time/CCT Total # of Minutes Spent Total Time Spent with Patient: Total time spent is greater than 50% in coordination of care (as documented) at patient's floor/unit and/or counseling patient: Coding Level of Care Code 63628 IN/OBS CONSULT LVL 4,60M Diagnoses Dehydration E86.0 Nausea & vomiting R11.2 HANNA (acute kidney injury) N17.9
[2023-04-21] MEDS ORDERED: PANTOprazole 40 MG in SYRINGE 0 ML IV SCH (11:00)
--- NOTE | 2023-04-21 16:46 | Discharge Summary ---
Date of Service April 21, 2023 Admission HPI Per Admitting Provider Pt is 32 yo M with PMH tobacco use, cannabis use, recent gastritis with candidal esophagitis presenting with abdominal pain. Pt reports onset of sudden lower abdominal pain- sharp, 8/10 severity this morning at about 6 AM. Reports associated nausea and up to 10 episodes of NBNB emesis since without any oral intake. He has had similar symptoms intermittently over the last few months and recently completed treatment for candidal esophagitis. Regularly follows with GI and did have EGD in 01/2023. Denies any other symptoms. Pt arrived to ER hemodynamically stable. Initial evaluation significant for WBC 14.5, Hgb 19.3, AG 21, Cr 2.54, Ca 13.1, TB 1.2. ER interventions include famotidine 20 mg IV, Toradol 10 mg IV, Tylenol 1000 mg IV, pantoprazole 40 mg IV, 1L NSS bolus. At present, pt reports continued pain and nausea. He does report some mild improvement with fluid repletion. States these symptoms are identical to his previous bouts of gastritis. He does smoke 1 bowl of marijuana nightly and about 5-10 cigarettes daily. Principal Diagnosis Dehydration Discharge Exam General: patient resting comfortably, NAD, non-toxic in appearance, AA&O x 4, answers questions appropriately and follows commands. Skin: warm, dry, intact HEENT: NC/AT, anicteric sclera, conjunctiva without injection, moist mucus mem branes, trachea midline, no thyromegaly, no JVD Heart: +S1/S2, regular, no m/r/g Lungs: equal air entry bilaterally, no rales/rhonchi/wheezes Abd: +BS, soft, TTP epigastrum, no masses/organomegaly/ascites Ext: warm, no clubbing/cyanosis or edema Neuro: nonfocal, patient AA&O x 4, speech intact, no facial droop, moving all extremities on command. Discharge Data Allergies Allergy/AdvReac Type Severity Reaction Status Date / Time No Known Allergies Allergy Verified 03/18/23 14:54 Consultations 04/20/23 20:07 ED Decision to Admit Stat 04/20/23 21:54 Consult Gastroenterology Routine Hospital Course (1) HANNA (acute kidney injury): (2) Dehydration: (3) Nausea & vomiting: (4) Abdominal pain: (5) Hypercalcemia: (6) Tobacco use disorder: (7) Gastritis: (8) Polycythemia: (9) Leukocytosis: (10) Hyperbilirubinemia: Aurora Bailey was admitting 04/21/23 for nausea and vomiting, epigastric pain. Electrolyte abnormalities were noted on admission. Recieved fluid resuscitation with resolution of electrolyte abnormalities. Tolerated diet by lunch. GI consulted, felt this is an exacerbation of his history of gastritis and will follow outpatient. Pt with history of candidal esophagitis - HIV screening performed after obtaining consent from patient. Patient discharge home in good condition. #HANNA Cr 2.54 on admission Likely pre renal Fluid repletion #Dehydration 2/2 multiple emesis likely cannibis hyperemesis NSS 125 cc/hr #Nausea/Vomiting Zofran PRN Advance diet as tolerated #Abdominal Pain Gastritis flare +/- hyperemesis Pain control tylenol, morphine GI consult #Hypercalcemia 13.1 albumin 7.5 Corrects to 10.3 IVF replete #Gastritis Recent gastritis, s/p EGD 01/2023 GI consult Pantoprazole #Polycythemia 19.3 on admission, suspect hemoconcentration #Tobacco Use Dx Precontemplative Nicotine patch declined #Leukocytosis 14.5 on admission, suspect hemoconcentration Low suspicion for infection #Hyperbilirubinemia mild, indirect, likely reactive FENGI: NPO, IVF Code status: Full DVT prophylaxis: Low-risk Isolation: None Disposition: Medical/surgical Total Time Total Time Spent Total Time Spent (In Minutes): <30 Discharge Plan Discharge Items Patient Disposition: Home - Self-Care Reason For Visit: HANNA Discharge Diagnosis: Dehydration, nausea, vomiting Activity: Resume your previous activity Non-emergency contact: Primary Care Provider and Food Beverage Manager Call non-emergency contact if: you have any medication questions, your symptoms worsen, you have a fever and your temperature is above 101.5 Follow-up/Referrals: Armando Otto DO [Primary Care Provider] - 04/26/23 9:00 am Diet: Regular Addtl Attending Provider Instructions: You were admitted to the hospital for nausea and vomiting. You were treated with IV hydration. A discharge summary will be sent to your primary care physician to ensure continuity of care. Please bring this discharge summary with you to your next office appointment so that your provider can review it at that time. Medications: Your medication list has been reviewed and reconciled upon discharge to ensure accuracy and continuity of care. An updated list of all your medications is included with your hospital discharge paperwork. Please review this list closely and make note of any changes to your medications. Follow up appointments: - Make a follow up appointment with your PCP within the next week. It is very important that you follow up with them shortly after discharge from the hospital. - Keep all of your follow up appointments as already scheduled. If you cannot make an appointment, notify your provider. CONTACT YOUR PRIMARY CARE PROVIDER if you experience any of the following: - Difficulty following your treatment plan - Difficulty taking any of your medications CALL 911 OR GO TO THE EMERGENCY DEPARTMENT if you experience any of the following: -Sudden, severe abdominal pain or nausea/vomiting - Severe chest pain or chest pain that radiates to your jaw or arm - Sudden, severe shortness of breath or difficulty breathing Pending Studies at Discharge: No Stand-Alone Forms: My [facility], Work/School Release, Smoking Cessation Medications and DC Order Prescriptions: Continued pantoprazole 40 mg tablet,delayed release (DR/EC) 40 mg PO DAILY Qty: 30 11RF Rx Instructions: ran out Discharge Orders: Discharge Order (Routine); Ordered 04/21/23 Ordered By: Amos Rodríguez/Other Patient Handouts: Dehydration Admission Data Admit Date/Time: 04/20/23 20:22 Attending Provider: Jt Baez Admit Provider: Gail Galvan Primary Care Provider: Armando Otto Other Providers: Roshan Iqbal ; Jade Padilla ; Gerard Villalba ; Lashaun De La Torre ; Sita Irene ; Nia Khan Janet R. ; Ramez Mcclure ; Deep Colunga ; Brit Cruz ; Janett Marques ; Italo Ureña ; Shreya Avila ; Renée Henley ; Abi Allred ; Radha Rider ; Scot Farfan ; Arsenio Balderrama ; Warren Cox ; Stephanie Potts ; Eleuterio Thorpe Jr Other Interventions: Discharge Summary Assessment (RN) Last Done: 04/21/23 13:14 Supervising Physician Co-Signing Physician Notes I personally examined the patient and verified all sumner points of history and exam, discussed case, and agree with decision making with Dr Mascorro feeling better eating better and feeling up to going home. Discussed that his overall care should definitely be primary care driven with gastroenterology assistance, he is expressing that he is starting to understand this better, and is quite fond of his PCPwho I agree is quite good. We also discussed that while he is likely underweight from nausea and vomiting, and it is quite probable that his candidal esophagitis was from his inhaled steroidI also harbor a low but real concern of something like undiagnosed/untreated HIVwe discussed this extensively and he consents for testing. I discussed with him in depth that it is not a diagnosis like it used to begiving examples of patients have had who have even had AIDS defining illnesses who, once under treatment, regressed to stable/chronic HIV. Vitals noted, in general he is awake and alert eating his lunch (chicken and rice) no distress. Breathing unlabored no accessory muscle use good effort. Skin shows no rashes no pallor or icterus. Neuro without focal deficits. Intractable nausea and vomitingnow improveddehydration/acute renal failure/hypercalcemiaalmost certainly all volume contraction as it has all improved. Safe/stable for home. In regards to his ongoing illness, his recent candidal esophagitis, underweight status, etc.certainly seems that there may be something more complicated going onbe at immunologic, physiologic, psychologic, or a mixture of all of the aboveand he expresses a good understanding of close follow-up with PCP to be able to reclaim his health better. He does express an overall good insight. HIV sent and pending. Resident Activity Tracking Resident Involvement: Resident Care Provided Care Provided: Adult Hospital Medicine
--- NOTE | 2023-04-21 19:18 | Billing Data ---
Date of Service April 21, 2023 Coding Level of Care Code 37505 IN/OBS DISCH 30 MIN/LESS
[2023-04-24 12:23] LABS: Codeine Urine NEGATIVE ng/mL (<50); Hydrocodone Urine NEGATIVE ng/mL (<50); Hydromor Urine NEGATIVE ng/mL (<50); Marijuana Quant, GCMS Urine 409 ng/mL (<5); Morphine Urine 1610 ng/mL (<50); Norhydrocodone Conf Ur NEGATIVE ng/mL (<50); Noroxycodone Urine NEGATIVE ng/mL (<50); Oxycodone Urine NEGATIVE ng/mL (<50); Oxymorph Urine NEGATIVE ng/mL (<50)
== END 2023-04-21 14:01 | disposition home or self-care (01) | DRG 392 ==
LOC: ED 17:02 → 3N 20:22 → SUATTDRO 20:22 → 3N 21:38

== ENCOUNTER 2023-11-06 00:28 | Inpatient (IN) ==
--- NOTE | 2023-11-06 01:10 | Emergency Department Note ---
Impression & Plan HANNA (acute kidney injury), Nausea & vomiting, Dehydration, Abdominal pain ED Provider Note ED Provider Note NAME: JOSE MEADOWS AGE:33 SEX: Male : 1990 ARRIVES VIA: Private vehicle INFORMANT: Patient ED PROVIDER(s): Kristie Rogers DO CHIEF COMPLAINT: Abdominal pain, nausea and vomiting HPI: This is a 33-year-old male presents emergency department due to concern for persistent dehydration from abdominal pain with accompanying nausea and vomiting. Patient states he was seen and evaluated here earlier the day, and wished to leave so removed his IV, cut off his band and left. He states he did have blood drawn but does not know the results. He states he was given medication and thought he could be okay at home but when he returned home he had persistent nausea and vomiting and worsening pain. Patient states with vomiting today he did see a small amount of blood. No history of PUD or gastritis. No other history of IBS or IBD. No coming diarrhea. He states has had subjective fevers and chills but did not measure his temperature. No other new medications or dietary changes. Patient states he feels improved when he soaks in a warm bath or stands in a hot shower. PAST MEDICAL HISTORY:See Below PAST SURGICAL HISTORY:See Below FAMILY HISTORY:See Below SOCIAL HISTORY:See Below HOME MEDICATIONS:See Below ALLERGIES:See Below VITALS:See Below PHYSICAL EXAMINATION: GENERAL: alert, well appearing, well nourished, no distress, non-toxic EYE EXAM: normal conjunctiva, PERRL and EOM's grossly intact OROPHARYNX: no exudate, no erythema, lips, buccal mucosa, and tongue normal and mucous membranes are dry NECK: supple, no nuchal rigidity, no adenopathy, non-tender LUNGS: Clear to auscultation. Normal chest wall mechanics, no w/r/r HEART: no murmurs, S1 normal and S2 normal ABDOMEN: abdomen soft, non-tender, normo-active bowel sounds, no masses, no rebound or guarding. BACK: Back is symmetrical on inspection and there is no deformity, no midline tenderness, no CVA tenderness. SKIN: no rashes, petechiae, orbruising UPPER EXTREMITIES: upper extremities are grossly normal. FROM, nml pulses b/l. LOWER EXTREMITIES: No pitting edema. FROM, nml pulses b/l. NEURO EXAM: Normal sensorium, cranial nerves II-XII grossly intact, normal speech, no facial droop,nogross weakness of arms, no gross weakness of legs. Gross sensation intact. No ataxia. Vital Signs: reviewed and remarkable Differential Diagnosis: Dehydration, HANNA, electrolyte abnormality, cannabis induced hyperemesis syndrome, viral syndrome, foodborne illness, bowel obstruction, pancreatitis, cholecystitis, colitis, perforation, GI bleed, as well as others were considered MEDICAL DECISION MAKING: This is a 33-year-old male presents emergency department due to persistent nausea vomiting and abdominal pain. Patient had been seen and evaluated earlier and left AGAINST MEDICAL ADVICE. He returns due to persistent symptoms. Labs drawn and sent, IV established, patient started on IV fluids. He was given IV Tylenol, IV Pepcid, IV Protonix due to concern for possible hematemesis. Labs showed worsening HANNA compared to labs drawn earlier today. No other significant acute electrolyte abnormalities. Labs otherwise. Hemoconcentrated likely secondary to his dehydration. Patient was given 2 L of IV fluids while in the emergency department and case discussed with the hospitalist team for additional evaluation and management. UA still pending at the time of this discussion. I suspect symptoms most likely due to ongoing cannabis use. Patient counseled on effects of this should he continue to use and he was strongly encouraged to stop using marijuana daily. I do not suspect obstructive uropathy, or UTI. I have a low suspicion for other acute intra-abdominal pathology based on symptoms. Consultation(s): 0240: Discussed with Dr. Iqbal, [facility] hospitalist, for additional evaluation and management. ER Treatment Provided: See below Diagnostics Interpreted By Me: -Cardiac Monitoring: An order was placed for continuous cardiac monitoring. The monitor shows a rate of 70 with normal sinus rhythm. -Laboratory studies: As stated above and show below. Triage Nursing Note Reviewed Prior/Outside Records Reviewed Past Med/Surg History Medical History Diarrhea Dehydration Abdominal pain Nausea & vomiting History of inhaled steroid therapy "has no idea why he has his inhaler, but PCP gave it to him to use" Cannabis hyperemesis syndrome concurrent with and due to cannabis abuse medical marijuana>"told to quit and haven't used any for 5-6 days" HANNA (acute kidney injury) Gastritis, acute with hemorrhage Benzodiazepine overdose age 17 Surgical History History of open heart surgery as an infant>"thinks they had a couple of clogged arteries, couple of stents" History of dental surgery all teeth pulled, no dentures Family History Mother Diabetes Grandmother Diabetes Grandfather Hypertension Myocardial infarction Stroke Prostate cancer Denies family history of Ovarian cancer Breast cancer Colorectal cancer Social History Smoking Status: Current every day smoker Tobacco Type: Cigarettes Age Started Using Tobacco: 15; Age Quit Using Tobacco: 30; Cigarettes Per Day: 5-10; Second Hand Exposure: Yes; Do You Dip or Chew Tobacco: No; Hx Alcohol Use: No Hx Substance Use: Yes Last Used Substance: Unknown Last Used Substance Other:: last use 5-6 days ago>told to quit Preferred Language: German Communication Ability: Effective Feller Machine Operator Required: No Beliefs That Will Affect Care: None Current Living Situation: Significant Other Current Living Situation Comment: With grandparents Other Information That Helps Us Care for You: No Feels Safe at Home: Yes Safety Concerns: Feels Safe At This Time Assistive Devices: None Allergies Allergies Allergy/AdvReac Type Severity Reaction Status Date / Time No Known Allergies Allergy Verified 11/06/23 01:40 Home Meds Home Medications Medication Instructions Recorded Confirmed No Known Home Medications 11/06/23 11/06/23 Results & Data (ED) Vital Signs Vital Signs - 24 hr 11/06/23 01:12 11/06/23 01:13 11/06/23 01:13 Pulse Rate 102 H 96 H Pulse Rate [Apical] Pulse Rate from SpO2 Sensor 100 H 95 H Respiratory Rate 19 15 Respiratory Effort / Characteristics Respiratory Depth Respiratory Pattern Blood Pressure 128/96 Blood Pressure [Right Arm] Blood Pressure Mean 107 Blood Pressure Mean [Right Arm] Blood Pressure Position [Right Arm] Pulse Oximetry 98 97 Oxygen Delivery Method 11/06/23 01:20 11/06/23 02:00 Pulse Rate 77 Pulse Rate [Apical] 71 Pulse Rate from SpO2 Sensor 71 Respiratory Rate 24 20 Respiratory Effort / Characteristics Non-Labored Spontaneous Labored Respiratory Depth Normal Respiratory Pattern Regular Blood Pressure Blood Pressure [Right Arm] 118/79 Blood Pressure Mean Blood Pressure Mean [Right Arm] 92 Blood Pressure Position [Right Arm] Lying Pulse Oximetry 99 96 Oxygen Delivery Method Room Air Laboratory Data 11/06/23 11:09 11/06/23 11:09 Lab Results 11/06/23 Range/Units 01:15 WBC 12.01 H (4.8-10.8) K/ul RBC 6.13 H (4.70-6.10) M/uL Hgb 19.2 H (14.0-18.0) g/dl Hct 54.6 H (42.0-52.0) % MCV 89.1 (80.0-100.0) fL MCH 31.3 (25.0-34.0) pg MCHC 35.2 (32.0-36.0) g/dL RDW Std Deviation 43.6 (36.4-46.3) fL RDW Coeff of Erika 13.3 (11.5-14.5) % Plt Count 311 (130-400) K/uL MPV 8.9 L (9.4-12.4) fL Immature Gran % (Auto) 0.5 % Neut % (Auto) 85.3 % Lymph % (Auto) 7.4 % [place]ford % (Auto) 6.5 % Eos % (Auto) 0.0 % Baso % (Auto) 0.3 % Neut # (Auto) 10.24 H (1.40-6.50) K/uL Lymph # (Auto) 0.89 L (1.20-3.40) K/uL Blackford # (Auto) 0.78 H (0.11-0.59) K/uL Eos # (Auto) 0.00 (0.00-0.50) K/uL Baso # (Auto) 0.04 (0.00-0.20) K/uL Immature Gran # (Auto) 0.06 (0.01-0.20) K/uL Sodium 132 L (136-145) mmol/L Potassium 4.2 (3.5-5.1) mmol/L Chloride 92 L (98-107) mmol/L Carbon Dioxide 22 (21-32) mmol/L Anion Gap 18 H (3-11) BUN 33 H (6-23) mg/dl Creatinine 3.05 H D (0.6-1.4) mg/dl Est Cr Clr Drug Dosing 20.5 ml/min Est GFR ( Amer) 29.6 ml/min Est GFR (Non-Af Amer) 25.6 ml/min BUN/Creatinine Ratio 10.8 (10-20) Glucose 181 H (70-99(Fasting)) mg/dl Calcium 11.3 H (8.6-10.3) mg/dl Magnesium 2.6 H (1.7-2.4) mg/dl Total Bilirubin 0.8 (0.2-1.0) mg/dl AST 26 (13-39) U/L ALT 27 (7-52) U/L Alkaline Phosphatase 73 (34-104) U/L Total Protein 9.9 H (6.0-8.3) gm/dl Albumin 6.7 H (3.4-5.0) gm/dl Globulin 3.2 (2.5-4.0) gm/dl Albumin/Globulin Ratio 2.1 H (0.9-2) Lipase 10 L (11-82) U/L Administered Medications Discontinued Medications Sodium Chloride (Nss) 1,000 mls @ 999 mls/hr IV .Q1H1M ONE Stop: 11/06/23 02:03 Last Infusion: 11/06/23 02:14 Dose: Infused Documented By: Admin: 11/06/23 01:13 Dose: 999 mls/hr Documented By: DARLENE Acetaminophen 630 mg/ EMPTY (BAG) 63 mls @ 252 mls/hr IV NOW STA Stop: 11/06/23 01:05 Last Infusion: 11/06/23 01:53 Dose: Infused Documented By: Admin: 11/06/23 01:38 Dose: 252 mls/hr Documented By: KALEN Famotidine (Pepcid 20mg Iv Push) 20 mg in 5 mls @ 2.5 mls/min IV NOW STA Stop: 11/06/23 01:05 Last Admin: 11/06/23 01:13 Dose: 2.5 mls/min Documented By: DARLENE Pantoprazole Sodium 40 mg/ (Syringe) 10 mls @ 5 mls/min IV NOW ONE Stop: 11/06/23 01:05 Last Admin: 11/06/23 01:38 Dose: 5 mls/min Documented By: KALEN Lactated Ringer's (Lr) 1,000 mls @ 999 mls/hr IV .Q1H1M ONE Stop: 11/06/23 03:05 Last Infusion: 11/06/23 03:34 Dose: Infused Documented By: Admin: 11/06/23 02:18 Dose: 999 mls/hr Documented By: DARLENE Sodium Chloride (Nss) 1,000 mls @ 999 mls/hr IV .Q1H1M ONE Stop: 11/06/23 03:50 Last Infusion: 11/06/23 05:08 Dose: Infused Documented By: Admin: 11/06/23 03:37 Dose: 999 mls/hr Documented By: MATT Pantoprazole Sodium 40 mg/ (Syringe) 10 mls @ 5 mls/min IV BID NIKIA Stop: 12/06/23 08:59 Last Admin: 11/06/23 08:31 Dose: 5 mls/min Documented By: JEREMIAH Sodium Chloride (Nss) 1,000 mls @ 200 mls/hr IV .Q5H NIKIA Stop: 11/06/23 08:14 Last Infusion: 11/06/23 09:35 Dose: Infused Documented By: Admin: 11/06/23 04:35 Dose: 200 mls/hr Documented By: MATT Sodium Chloride (Nss) 1,000 mls @ 125 mls/hr IV .Q8H NIKIA Stop: 12/06/23 08:44 Last Admin: 11/06/23 08:44 Dose: 125 mls/hr Documented By: JEREMIAH Lorazepam (Lorazepam 1 Mg/1 Ml Syr Ed Inj Use) 0.5 mg IV ONE STA Stop: 11/06/23 02:44 Last Admin: 11/06/23 04:03 Dose: 0.5 mg Documented By: MATT Ondansetron HCl (Ondansetron Inj 2 Mg/Ml 2 Ml Vial) 4 mg IV Q6H PRN PRN Reason: Nausea Stop: 12/06/23 03:22 Last Admin: 11/06/23 08:35 Dose: 4 mg Documented By: JEREMIAH Discharge Plan Visit Data Chief Complaint: Dehydration Stated Complaint: DEHYRATION ED Provider: Kristie Rogers Discharge Problem: HANNA (acute kidney injury), Nausea & vomiting, Dehydration, Abdominal pain Patient Disposition: Admitted As Inpatient Discharge Instructions Interventions: ED Discharge Assessment Last Done: 11/06/23 03:23
[2023-11-06] MEDS: FAMOTIDINE 20MG IV PUSH 20 MG/5 ML SYR IV STA (01:13)
[2023-11-06] MEDS: SODIUM CHLORIDE 0.9% 1,000 ML IV ONE ×2 (01:13→03:37)
[2023-11-06 01:33] LABS: Basophils # (auto) 0.04 K/uL (0.00-0.20); Basophils % (auto) 0.3 %; Hematocrit (blood only) 54.6 % (42.0-52.0); Hemoglobin 19.2 g/dl (14.0-18.0); Immature Granulocytes # (auto) 0.06 K/uL (0.01-0.20); Immature Granulocytes % (auto) 0.5 %; Lymphocytes # (auto) 0.89 K/uL (1.20-3.40); Lymphocytes % (auto) 7.4 %; Mean Corpuscular Hemoglobin 31.3 pg (25.0-34.0); Mean Corpuscular Hgb Conc 35.2 g/dL (32.0-36.0); Mean Corpuscular Volume 89.1 fL (80.0-100.0); Mean Platelet Volume 8.9 fL (9.4-12.4); Monocytes # (auto) 0.78 K/uL (0.11-0.59); Monocytes % (auto) 6.5 %; Neutrophils # (auto) 10.24 K/uL (1.40-6.50); Neutrophils % (auto) 85.3 %; Platelet Count 311 K/uL (130-400); RDW Coefficient of Variation 13.3 % (11.5-14.5); RDW Standard Deviation 43.6 fL (36.4-46.3); Red Blood Count 6.13 M/uL (4.70-6.10); White Blood Count 12.01 K/ul (4.8-10.8)
[2023-11-06] MEDS: ACETAMINOPHEN IV STA (01:38)
[2023-11-06] MEDS: PANTOprazole 40 MG in SYRINGE 0 ML IV ONE (01:38)
[2023-11-06 01:58] LABS: BUN Creatinine Ratio 10.8 (10-20); Calcium 11.3 mg/dl (8.6-10.3); Creatinine Clr Calc Pharmacy 20.5 ml/min; Est GFR (African American) 29.6 ml/min; Est GFR (Non-African American) 25.6 ml/min; Magnesium 2.6 mg/dl (1.7-2.4); Potassium 4.2 mmol/L (3.5-5.1)
[2023-11-06] MEDS: LACTATED RINGER'S 1,000 ML IV ONE (02:18)
[2023-11-06 02:26] LABS: Albumin Globulin Ratio 2.1 (0.9-2); Albumin Level 6.7 gm/dl (3.4-5.0); Bilirubin,Total 0.8 mg/dl (0.2-1.0); Globulin 3.2 gm/dl (2.5-4.0); Total Protein 9.9 gm/dl (6.0-8.3)
--- NOTE | 2023-11-06 03:13 | History & Physical Report ---
Date of Service November 06, 2023 Assessment & Plan (1) Acute kidney failure: (2) Cannabis hyperemesis syndrome concurrent with and due to cannabis abuse: (3) Nausea & vomiting: (4) Dehydration: (5) Anxiety and depression: (6) ADHD (attention deficit hyperactivity disorder): Plan Acute kidney failure/moderately severe dehydration- Secondary to intractable nausea and vomiting from cannabinoid hyperemesis syndrome Creatinine 3.05 on admission, with baseline 0.80 Patient has had 3 previous admissions for similar process Marijuana abuse counseling, again reiterated to patient that his symptoms are related to excessive marijuana use, and could result in permanent kidney and other organ damage He will receive a total of 2 L normal saline and 1 L LR and while in the ED Recheck laboratories this a.m: CBC with differential, renal function panel and magnesium level Hemoconcentration- WBC 12.01, hemoglobin 19.2, medic at 54.6, creatinine 3.05, BUN 33, glucose 181, magnesium 2.6 and calcium 11.3 His laboratories will be repeated after receiving 3 L of IV fluids, and then again at 11 AM after receiving NSS at 200 mL/h x 1 additional liter GERD/report of blood-tinged emesis- Differential including but not limited to: Gastritis/ulcer/Melisa-Szymanski tear/esophagitis He received pantoprazole 40 mg IV and famotidine 20 mg IV in the ED Continue pantoprazole 40 mg IV twice daily Anxiety/depression/ADHD- On no routine medications History of Present Illness Chief Complaint: The patient presents to the emergency department with intractable nausea and vomiting, with associated mild epigastric area pain, with symptoms persistent over the past 1 to 2 days. Primary Care Provider: Armando Otto DO The patient is a 33-year-old male with a past medical history including acute kidney injury, nausea and vomiting, Martha esophagitis, cannabinol hyperemesis syndrome due to cannabis abuse, anxiety and depression, ADHD, lung emphysema and dental caries. Patient presents with symptoms similar to his previous 3 admissions of uncontrollable nausea and vomiting after continued use of marijuana. He was seen earlier in the day in the ED, and left AGAINST MEDICAL ADVICE after feeling mildly improved after having gotten IV fluids and nausea medications. He returns to the emergency department this evening, due to the persistence of the symptoms. Allergies Allergy/AdvReac Type Severity Reaction Status Date / Time No Known Allergies Allergy Verified 04/27/24 01:40 Home Medications Medication Instructions Recorded Confirmed Type No Known Home Medications 11/06/23 11/06/23 History Past Med/Surg History Medical History Diarrhea Dehydration Abdominal pain Nausea & vomiting History of inhaled steroid therapy "has no idea why he has his inhaler, but PCP gave it to him to use" Cannabis hyperemesis syndrome concurrent with and due to cannabis abuse medical marijuana>"told to quit and haven't used any for 5-6 days" HANNA (acute kidney injury) Gastritis, acute with hemorrhage Benzodiazepine overdose age 17 Surgical History History of open heart surgery as an infant>"thinks they had a couple of clogged arteries, couple of stents" History of dental surgery all teeth pulled, no dentures Family History Mother Diabetes Grandmother Diabetes Grandfather Hypertension Myocardial infarction Stroke Prostate cancer Denies family history of Ovarian cancer Breast cancer Colorectal cancer Social History Smoking Status: Current every day smoker Tobacco Type: Cigarettes Age Started Using Tobacco: 15; Age Quit Using Tobacco: 30; Cigarettes Per Day: 5-10; Second Hand Exposure: Yes; Do You Dip or Chew Tobacco: No; Hx Alcohol Use: No Hx Substance Use: Yes Last Used Substance: Unknown Last Used Substance Other:: last use 5-6 days ago>told to quit Preferred Language: Urdu 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 Beliefs That Will Affect Care: None Current Living Situation: Alone Current Living Situation Comment: With grandparents Feels Safe at Home: Yes Assistive Devices: None Review of Systems Review of Systems: The patient denies chest pain, palpitations, shortness of breath, dyspnea on exertion, lower extremity swelling, fevers, chills, sweats, blood in urine or stool, dysuria, urinary frequency or urgency, lightheadedness, dizziness, headache, memory loss, loss of consciousness, rash, abnormal bruising or bleeding, imbalance, focal weakness, numbness or tingling in arms or legs, generalized arthralgias or myalgias, back or neck pain, or night sweats. The review of systems is otherwise negative other than for that already noted above, and at least 10 systems have been reviewed. Physical Exam Physical Exam: The patient is awake, alert and oriented 3, well developed and well nourished, normocephalic and atraumatic, lying in bed and in no acute distress. HEENT--PERRL, EOMI, mucous membranes and oropharynx dry. Neck--supple. No JVD. No bruits. Thyroid normal, trachea midline, no adenopathy. Heart--normal S1 and S2. No murmurs, rubs or gallops. Lungs--clear bilaterally, no respiratory distress, no accessory muscle use. Abdomen--normal bowel sounds and soft. Nontender. Nondistended, no hernias or masses, no organomegaly. Extremities--no cyanosis or clubbing. No edema. There are good distal pulses b/l. Dermatologic--normal skin turgor, normal color, no abnormal lymph nodes, no rash. Neurologic--cranial nerves II through XII grossly intact. Rheumatologic--normal range of motion. Psychiatric--normal affect. Results & Data Results & Data Vital Signs (Past 12 Hours) Vital Signs Temp Pulse Pulse Resp BP BP Pulse Ox 11/06/23 02:00 71 20 118/79 96 11/06/23 01:20 77 24 99 11/06/23 01:13 96 H 15 97 11/06/23 01:13 128/96 11/06/23 01:12 102 H 19 98 11/06/23 00:38 36.4 C L 114 H 20 124/88 95 O2 Del Method 11/06/23 02:00 Room Air 11/06/23 01:20 11/06/23 01:13 11/06/23 01:13 11/06/23 01:12 11/06/23 00:38 Room Air Laboratory Results Laboratory Results WBC 12.01 K/ul (4.8-10.8) H 11/06/23 01:15 RBC 6.13 M/uL (4.70-6.10) H 11/06/23 01:15 Hgb 19.2 g/dl (14.0-18.0) H 11/06/23 01:15 Hct 54.6 % (42.0-52.0) H 11/06/23 01:15 MCV 89.1 fL (80.0-100.0) 11/06/23 01:15 MCH 31.3 pg (25.0-34.0) 11/06/23 01:15 MCHC 35.2 g/dL (32.0-36.0) 11/06/23 01:15 RDW Std Deviation 43.6 fL (36.4-46.3) 11/06/23 01:15 RDW Coeff of Erika 13.3 % (11.5-14.5) 11/06/23 01:15 Plt Count 311 K/uL (130-400) 11/06/23 01:15 MPV 8.9 fL (9.4-12.4) L 11/06/23 01:15 Immature Gran % (Auto) 0.5 % 11/06/23 01:15 Neut % (Auto) 85.3 % 11/06/23 01:15 Lymph % (Auto) 7.4 % 11/06/23 01:15 [place] % (Auto) 6.5 % 11/06/23 01:15 Eos % (Auto) 0.0 % 11/06/23 01:15 Baso % (Auto) 0.3 % 11/06/23 01:15 Neut # (Auto) 10.24 K/uL (1.40-6.50) H 11/06/23 01:15 Lymph # (Auto) 0.89 K/uL (1.20-3.40) L 11/06/23 01:15 [place] # (Auto) 0.78 K/uL (0.11-0.59) H 11/06/23 01:15 Eos # (Auto) 0.00 K/uL (0.00-0.50) 11/06/23 01:15 Baso # (Auto) 0.04 K/uL (0.00-0.20) 11/06/23 01:15 Immature Gran # (Auto) 0.06 K/uL (0.01-0.20) 11/06/23 01:15 Sodium 132 mmol/L (136-145) L 11/06/23 01:15 Potassium 4.2 mmol/L (3.5-5.1) 11/06/23 01:15 Chloride 92 mmol/L (98-107) L 11/06/23 01:15 Carbon Dioxide 22 mmol/L (21-32) 11/06/23 01:15 Anion Gap 18 (3-11) H 11/06/23 01:15 BUN 33 mg/dl (6-23) H 11/06/23 01:15 Creatinine 3.05 mg/dl (0.6-1.4) H D 11/06/23 01:15 Est Cr Clr Drug Dosing 20.5 ml/min 11/06/23 01:15 Est GFR ( Amer) 29.6 ml/min 11/06/23 01:15 Est GFR (Non-Af Amer) 25.6 ml/min 11/06/23 01:15 BUN/Creatinine Ratio 10.8 (10-20) 11/06/23 01:15 Glucose 181 mg/dl (70-99(Fasting)) H 11/06/23 01:15 Calcium 11.3 mg/dl (8.6-10.3) H 11/06/23 01:15 Magnesium 2.6 mg/dl (1.7-2.4) H 11/06/23 01:15 Total Bilirubin 0.8 mg/dl (0.2-1.0) 11/06/23 01:15 AST 26 U/L (13-39) 11/06/23 01:15 ALT 27 U/L (7-52) 11/06/23 01:15 Alkaline Phosphatase 73 U/L (34-104) 11/06/23 01:15 Total Protein 9.9 gm/dl (6.0-8.3) H 11/06/23 01:15 Albumin 6.7 gm/dl (3.4-5.0) H 11/06/23 01:15 Globulin 3.2 gm/dl (2.5-4.0) 11/06/23 01:15 Albumin/Globulin Ratio 2.1 (0.9-2) H 11/06/23 01:15 Lipase 10 U/L (11-82) L 11/06/23 01:15 Code Status & VTE Plan Code Status Full code VTE Prophylaxis Plan VTE Prophylaxis will be ordered: Yes PG Care Time/CCT Total # of Minutes Spent Total Time Spent with Patient: Total time spent is greater than 50% in coordination of care (as documented) at patient's floor/unit and/or counseling patient: Coding Level of Care Code 71973 INT INP/OBS CARE MIN Diagnoses Acute kidney failure N17.9 Cannabis hyperemesis syndrome concurrent with and due to cannabis abuse F12.188 Nausea & vomiting R11.2 Dehydration E86.0 Anxiety and depression F41.9; F32.A ADHD (attention deficit hyperactivity disorder) F90.9
[2023-11-06] MEDS ORDERED: ACETAMINOPHEN 325 MG TAB PO PRN (03:23)
[2023-11-06] MEDS: LORazepam 1 MG/1 ML SYR ED Inj Use IV STA (03:34)
[2023-11-06 04:21] LABS: Appearance Urine Cloudy (Clear); Bacteria Urine Automated None Seen (None Seen); Bilirubin Urine Negative (Negative); Blood Urine Negative (Negative); Calcium Oxalate Crystals Urine Present (None Prsent); Cast Urine Automated >20 /lpf (0-2); Color Urine Yellow; Glucose Urine UA Negative (Negative); Granular Casts Urine Present /lpf (None Prsent); Ketones Urine Trace (Negative); Leukocyte Esterase Urine Trace (Negative); Mucus Urine Present (None Prsent); Nitrite Urine Negative (Negative); Protein Urine 2+ (Negative); Specific Gravity Urine 1.022 (1.000-1.030); Urobilinogen Urine Negative (Negative)
[2023-11-06] MEDS: SODIUM CHLORIDE 0.9% 1,000 ML IV SCH ×2 (04:35→08:44)
[2023-11-06 04:42] LABS: Amphetamines+Metham, Urine Neg (Neg); Barbiturates, Urine Neg (Neg); Benzodiazepine, Urine Neg (Neg); Cocaine, Urine Neg (Neg); MDMA (Ecstacy), Urine Neg (Neg); Marijuana, Urine Pos (Neg); Methadone, Urine Neg (Neg); Opiate, Urine Neg (Neg); Phencyclidine, Urine Neg (Neg)
[2023-11-06 05:23] LABS: Basophils # (auto) 0.01 K/uL (0.00-0.20); Basophils % (auto) 0.1 %; Hematocrit (blood only) 39.7 % (42.0-52.0); Hemoglobin 13.8 g/dl (14.0-18.0); Immature Granulocytes # (auto) 0.03 K/uL (0.01-0.20); Immature Granulocytes % (auto) 0.3 %; Lymphocytes # (auto) 1.24 K/uL (1.20-3.40); Lymphocytes % (auto) 13.1 %; Mean Corpuscular Hemoglobin 31.5 pg (25.0-34.0); Mean Corpuscular Hgb Conc 34.8 g/dL (32.0-36.0); Mean Corpuscular Volume 90.6 fL (80.0-100.0); Mean Platelet Volume 8.8 fL (9.4-12.4); Monocytes # (auto) 0.81 K/uL (0.11-0.59); Monocytes % (auto) 8.5 %; Platelet Count 206 K/uL (130-400); RDW Coefficient of Variation 13.3 % (11.5-14.5); RDW Standard Deviation 44.8 fL (36.4-46.3); Red Blood Count 4.38 M/uL (4.70-6.10); White Blood Count 9.49 K/ul (4.8-10.8)
[2023-11-06 05:38] LABS: BUN Creatinine Ratio 15.1 (10-20); Calcium 8.3 mg/dl (8.6-10.3); Creatinine Clr Calc Pharmacy 36.3 ml/min; Est GFR (African American) 59.2 ml/min; Est GFR (Non-African American) 51.1 ml/min; Magnesium 1.9 mg/dl (1.7-2.4); Phosphorus 4.5 mg/dl (2.5-4.9); Potassium 4.2 mmol/L (3.5-5.1)
[2023-11-06] MEDS: PANTOprazole 40 MG in SYRINGE 0 ML IV SCH (08:31)
[2023-11-06] MEDS: ONDANSETRON INJ 2 MG/ML 2 ML VIAL IV PRN (08:35)
[2023-11-06 11:27] LABS: Basophils # (auto) 0.03 K/uL (0.00-0.20); Basophils % (auto) 0.4 %; Eosinophils # (auto) 0.03 K/uL (0.00-0.50); Eosinophils % (auto) 0.4 %; Hematocrit (blood only) 37.5 % (42.0-52.0); Hemoglobin 12.7 g/dl (14.0-18.0); Immature Granulocytes # (auto) 0.02 K/uL (0.01-0.20); Immature Granulocytes % (auto) 0.3 %; Lymphocytes # (auto) 1.54 K/uL (1.20-3.40); Lymphocytes % (auto) 19.3 %; Mean Corpuscular Hemoglobin 31.1 pg (25.0-34.0); Mean Corpuscular Hgb Conc 33.9 g/dL (32.0-36.0); Mean Corpuscular Volume 91.7 fL (80.0-100.0); Mean Platelet Volume 8.8 fL (9.4-12.4); Monocytes # (auto) 0.81 K/uL (0.11-0.59); Monocytes % (auto) 10.2 %; Neutrophils # (auto) 5.53 K/uL (1.40-6.50); Neutrophils % (auto) 69.4 %; Platelet Count 178 K/uL (130-400); RDW Coefficient of Variation 13.5 % (11.5-14.5); RDW Standard Deviation 45.8 fL (36.4-46.3); Red Blood Count 4.09 M/uL (4.70-6.10); White Blood Count 7.96 K/ul (4.8-10.8)
[2023-11-06 11:45] LABS: Albumin Level 3.9 gm/dl (3.4-5.0); BUN Creatinine Ratio 18.5 (10-20); Calcium 8.7 mg/dl (8.6-10.3); Creatinine Clr Calc Pharmacy 57.8 ml/min; Est GFR (Non-African American) 89.7 ml/min; Phosphorus 2.6 mg/dl (2.5-4.9); Potassium 4.2 mmol/L (3.5-5.1)
--- NOTE | 2023-11-06 13:45 | Communication Note ---
Date of Service: November 06, 2023 Please refer to the H&P dictated earlier this morning for details of presentation on admission. In brief, this is a 33-year-old patient with a history of cannabinoid hyperemesis syndrome, acute kidney injury who presented with another episode. He had moderately severe dehydration leading to acute kidney injury. He received IV fluids with improvement in his renal function and symptoms overall. Will continue IV fluids and monitor labs. Patient is not currently threatening to leave AGAINST MEDICAL ADVICE at this time.
--- NOTE | 2023-11-06 16:11 | Discharge Summary ---
Date of Service November 06, 2023 Admission HPI Per Admitting Provider The patient is a 33-year-old male with a past medical history including acute kidney injury, nausea and vomiting, Martha esophagitis, cannabinol hyperemesis syndrome due to cannabis abuse, anxiety and depression, ADHD, lung emphysema and dental caries. Patient presents with symptoms similar to his previous 3 admissions of uncontrollable nausea and vomiting after continued use of marijuana. He was seen earlier in the day in the ED, and left AGAINST MEDICAL ADVICE after feeling mildly improved after having gotten IV fluids and nausea medications. He returns to the emergency department this evening, due to the persistence of the symptoms. Admission Exam Per Admitting Provider The patient is awake, alert and oriented 3, well developed and well nourished, normocephalic and atraumatic, lying in bed and in no acute distress. HEENT--PERRL, EOMI, mucous membranes and oropharynx dry. Neck--supple. No JVD. No bruits. Thyroid normal, trachea midline, no adenopathy. Heart--normal S1 and S2. No murmurs, rubs or gallops. Lungs--clear bilaterally, no respiratory distress, no accessory muscle use. Abdomen--normal bowel sounds and soft. Nontender. Nondistended, no hernias or masses, no organomegaly. Extremities--no cyanosis or clubbing. No edema. There are good distal pulses b/l. Dermatologic--normal skin turgor, normal color, no abnormal lymph nodes, no rash. Neurologic--cranial nerves II through XII grossly intact. Rheumatologic--normal range of motion. Psychiatric--normal affect. Principal Diagnosis Acute kidney injury due to moderately severe dehydration related to intractable nausea and vomiting from cannabinoid hyperemesis syndrome Discharge Exam Patient left AMA. He was not examined Discharge Data Allergies Allergy/AdvReac Type Severity Reaction Status Date / Time No Known Allergies Allergy Verified 11/06/23 01:40 Consultations 11/06/23 02:43 ED Decision to Admit Stat Hospital Course (1) Acute kidney failure: (2) Cannabis hyperemesis syndrome concurrent with and due to cannabis abuse: (3) Nausea & vomiting: (4) Dehydration: (5) Anxiety and depression: (6) ADHD (attention deficit hyperactivity disorder): Plan Acute kidney failure/moderately severe dehydration- Secondary to intractable nausea and vomiting from cannabinoid hyperemesis syndrome Creatinine 3.05 on admission, with baseline 0.80 Patient has had 3 previous admissions for similar process Marijuana abuse counseling, again reiterated to patient that his symptoms are related to excessive marijuana use, and could result in permanent kidney and other organ damage He received IV fluids with improvement of his creatinine When he started feeling better, he decided to leave AGAINST MEDICAL ADVICE Hemoconcentration- WBC 12.01, hemoglobin 19.2, medic at 54.6, creatinine 3.05, BUN 33, glucose 181, magnesium 2.6 and calcium 11.3 Labs improved after fluid resuscitation GERD/report of blood-tinged emesis- Differential including but not limited to: Gastritis/ulcer/Melisa-Szymanski tear/esophagitis He received pantoprazole 40 mg IV and famotidine 20 mg IV in the ED Plan was to continue pantoprazole 40 mg IV twice daily However the patient left AMA Anxiety/depression/ADHD- On no routine medications Total Time Total Time Spent Total Time Spent (In Minutes): 35 Discharge Plan Discharge Items Patient Disposition: Against Medical Advice Reason For Visit: AKF, CANNABINOID HYPEREMESIS SYNDROME, DEHYDRATION Follow-up/Referrals: Armando Otto DO [Primary Care Provider] - Stand-Alone Forms: Etherpad, Smoking Cessation Medications and DC Order Prescriptions: No Action No Known Home Medications Discharge Orders: Left Against Medical Advice (Routine); Ordered 11/06/23 Ordered By: Lan Diallo Admission Data Admit Date/Time: 11/06/23 03:00 Attending Provider: Lan Diallo Admit Provider: Roshan Iqbal Primary Care Provider: Armando Otto Other Providers: Roshan Iqbal Coding Level of Care Code 05074 INP/OBS DISCH >30 MIN Diagnoses Acute kidney failure N17.9 Cannabis hyperemesis syndrome concurrent with and due to cannabis abuse F12.188 Nausea & vomiting R11.2 Dehydration E86.0 Anxiety and depression F41.9; F32.A ADHD (attention deficit hyperactivity disorder) F90.9
[2023-11-08 04:38] LABS: Marijuana Quant, GCMS Urine 84 ng/mL (<5)
== END 2023-11-06 16:07 | disposition left against medical advice (07) | DRG 682 ==
LOC: ED 00:28 → EDINP 03:00 → SUATTDRO 03:00 → 2W 03:23

== ENCOUNTER 2025-05-11 08:50 | Inpatient (IN) ==
--- NOTE | 2025-05-11 09:07 | Emergency Department Note ---
Impression & Plan Acute hypoxemic respiratory failure, COPD exacerbation, Low body mass index (BMI), Elevated lactic acid level, Acute dehydration ED Provider Note NAME: JOSE MEADOWS AGE: 34 SEX: M : 1990 ARRIVES VIA: Walk-In INFORMANT: Patient, ED PROVIDER(S): Jt Sawyer MD CHIEF COMPLAINT: Shortness of breath, cough MEDICAL DECISION MAKING: Patient presents with the above. The patient is ill in appearance with coarse breath sounds bilaterally. Prior history of smoking. IV was established and blood work was obtained obtained with sepsis protocols initiated IV fluids ordered DuoNebs IV methylprednisolone IV cefepime BioFire chest x-ray. The patient's blood work shows a normal white count hemoglobin and platelet count kidney function unremarkable. Mild hyponatremia at 135. Initial lactate of 3.5. The patient was ordered additional IV fluids for 30 cc/kg bolus. Troponin negative. The patient's urinalysis that showed ketones but no signs of obvious infection. BioFire positive for entero or rhinovirus x-ray read as no evidence of pneumonia but given the patient's oxygen requirement smoking history do believe the patient would benefit from admission given at this time. I did speak the on-call hospitalist service and the patient was admitted by Dr. Bashir. Critical Care: I have personally spent 35 minutes of critical care time in direct management of this patient. This includes bedside care, interpretation of diagnostic studies, and testing, discussion with consultants, patient, and family members, and other require inpatient management activities. This 35 minutes is in excess of all separately billable procedures. Discussion w/ other healthcare providers: Dr. Bashir inpatient medicine service Prior /Outside records reviewed: None Differential diagnosis: Reactive airway disease, pneumonia, pneumothorax, COPD, CHF, ACS, pulmonary embolism, musculoskeletal, GERD as well as other pathologies were considered. Diagnostics, as interpreted by me: ECG: Sinus with short HI, rate of 76, normal QRS duration, right axis deviation no ST elevations. T wave version in aVL. Cardiac monitoring: An order was placed for continuous cardiac monitoring. The monitor shows a rate of 79 with sinus rhythm. Patient was placed on pulse oximetry Medical decision rules: None Imaging studies: I informally interpreted the patient's chest x-ray does not show evidence of obvious consolidative pneumonia with formal report to follow. HPI: Patient presents due to concern for shortness of breath and cough. Patient states that he quit smoking about 5 days ago. He states that he was around an uncle recently that was having some lower respiratory symptoms and has since developed a cough with productive whitish sputum. He denies any recent travel. He states that he does feel short of breath and has been taking "little breaths." He states that because of this he was "scared." Patient states that he has been trying to drink fluids. He has had some occasional nausea with an episode of vomiting. Patient denies any falls or trauma. PAST MEDICAL HISTORY: See Below PAST SURGICAL HISTORY: See Below SOCIAL HISTORY: See Below HOME MEDICATIONS: See Below ALLERGIES: See Below VITALS: See Below PHYSICAL EXAMINATION: GENERAL: NAD, non-toxic. Thin in appearance. Nasal cannula in place. EYE EXAM: Normal conjunctiva. PERRL, no anisocoria and EOM's grossly intact w/o pain. OROPHARYNX: Moist mucus membranes, edentulous. NECK: Trachea midline, no stridor. LUNGS: Coarse breath sounds throughout. Normal chest wall mechanics. HEART: NSR, no MRG. ABDOMEN: Abdomen soft, non-tender, no masses, no rebound or guarding. BACK: No CVA TTP. SKIN: No rashes and no bruising. UPPER EXTREMITIES: Upper extremities are grossly normal. LOWER EXTREMITIES: Grossly normal, no edema. NEURO EXAM: Awake and alert, follows commands, no obvious facial asymmetry, normal speech, moves all 4 extremities. Past Med/Surg History Problem List (Updated 05/11/25 @ 16:37 by Jt Sawyer MD) Acute dehydration (Acute) Elevated lactic acid level (Acute) Acute hypoxemic respiratory failure (Acute) Decreased appetite Smoker Rhinovirus COPD exacerbation (Acute) Acute kidney failure HANNA (acute kidney injury) (Acute) Abdominal pain (Acute) Dehydration (Acute) Nausea & vomiting (Acute) Diarrhea Martha esophagitis Encounter for pre-operative examination History of marijuana use (Acute) Back pain Dental caries (Acute) patient had all his teeth pulled. Does not have dentures. Fever (Acute) Low body mass index (BMI) (Acute) Anxiety and depression ADHD (attention deficit hyperactivity disorder) Emphysema of lung Chronic right upper quadrant pain Cannabis hyperemesis syndrome concurrent with and due to cannabis abuse medical marijuana>"told to quit and haven't used any for 5-6 days" Medical History Dehydration Abdominal pain Nausea & vomiting History of inhaled steroid therapy "has no idea why he has his inhaler, but PCP gave it to him to use" HANNA (acute kidney injury) Gastritis, acute with hemorrhage Benzodiazepine overdose age 17 Surgical History History of open heart surgery as an >"thinks they had a couple of clogged arteries, couple of stents" History of dental surgery all teeth pulled, no dentures Family History Mother Diabetes Grandmother Diabetes Grandfather Hypertension Myocardial infarction Stroke Prostate cancer Denies family history of Ovarian cancer Breast cancer Colorectal cancer Social History Smoking Status: Current every day smoker Tobacco Type: Cigarettes Age Started Using Tobacco: 15; Age Quit Using Tobacco: 30; Cigarettes Per Day: 5-10; Second Hand Exposure: Yes; Do You Dip or Chew Tobacco: No; Hx Alcohol Use: No Hx Substance Use: No Preferred Language: Ukrainian Communication Ability: Effective Wash Barrel Leader Required: No Beliefs That Will Affect Care: None Current Living Situation: Family Current Living Situation Comment: Takes care of grandma Feels Safe at Home: Yes Safety Concerns: Feels Safe At This Time Assistive Devices: None Allergies Allergies Allergy/AdvReac Type Severity Reaction Status Date / Time No Known Allergies Allergy Verified 05/11/25 13:30 Home Meds Previous Rx's Medication Instructions Recorded meclizine 25 mg tablet 25 mg PO QID PRN dizziness #12 tabs 12/08/23 Results & Data (ED) Vital Signs Vital Signs - 24 hr 05/11/25 08:59 05/11/25 09:10 05/11/25 09:11 Temperature 36.7 C Temperature Source Temporal Artery Scan Pulse Rate 106 H Pulse Rate [Apical] Pulse Rhythm [Apical] Pulse Strength [Apical] Respiratory Rate 20 Respiratory Effort / Characteristics Respiratory Depth Respiratory Pattern Blood Pressure 132/92 Blood Pressure [Right Arm] Blood Pressure Mean 105 Blood Pressure Mean [Right Arm] Pulse Oximetry 89 L 89 L 90 Oxygen Delivery Method Room Air Room Air Nasal Cannula Oxygen Flow Rate 0 Sepsis Recent Fever Within 48 Hours No Sepsis New/Unexplained Change in Mental Status N/A Sepsis Action Taken by Nursing No Action Required Oxygen Flow Rate - Titration 2 05/11/25 09:20 05/11/25 09:30 05/11/25 09:35 Temperature Temperature Source Pulse Rate 96 H Pulse Rate [Apical] 72 Pulse Rhythm [Apical] Pulse Strength [Apical] Respiratory Rate 20 Respiratory Effort / Characteristics Respiratory Depth Respiratory Pattern Blood Pressure Blood Pressure [Right Arm] 155/97 H Blood Pressure Mean Blood Pressure Mean [Right Arm] 116 Pulse Oximetry 95 93 Oxygen Delivery Method Nasal Cannula Nasal Cannula Oxygen Flow Rate 2 2 Sepsis Recent Fever Within 48 Hours Sepsis New/Unexplained Change in Mental Status Sepsis Action Taken by Nursing Oxygen Flow Rate - Titration 05/11/25 09:45 05/11/25 10:00 05/11/25 10:15 Temperature Temperature Source Pulse Rate 94 H 87 Pulse Rate [Apical] Pulse Rhythm [Apical] Pulse Strength [Apical] Respiratory Rate 30 H Respiratory Effort / Characteristics Respiratory Depth Respiratory Pattern Blood Pressure 155/97 H 142/105 H 139/90 Blood Pressure [Right Arm] Blood Pressure Mean 109 121 109 Blood Pressure Mean [Right Arm] Pulse Oximetry 95 99 Oxygen Delivery Method Oxygen Flow Rate Sepsis Recent Fever Within 48 Hours Sepsis New/Unexplained Change in Mental Status Sepsis Action Taken by Nursing Oxygen Flow Rate - Titration 05/11/25 10:30 05/11/25 10:45 Temperature Temperature Source Pulse Rate 105 H Pulse Rate [Apical] 102 H Pulse Rhythm [Apical] Regular Pulse Strength [Apical] Normal Respiratory Rate 27 H 22 Respiratory Effort / Characteristics Non-Labored Spontaneous Respiratory Depth Normal Respiratory Pattern Regular Blood Pressure 138/95 Blood Pressure [Right Arm] 131/82 Blood Pressure Mean 108 Blood Pressure Mean [Right Arm] 98 Pulse Oximetry 100 92 Oxygen Delivery Method Room Air Oxygen Flow Rate Sepsis Recent Fever Within 48 Hours Sepsis New/Unexplained Change in Mental Status Sepsis Action Taken by Nursing Oxygen Flow Rate - Titration Home Medications Current Medication List: was personally reviewed by me Laboratory Data Attestation: I reviewed the patient's lab results. 05/11/25 09:30 05/11/25 09:30 Lab Results 05/11/25 05/11/25 05/11/25 Range/Units 09:30 10:30 11:30 WBC 9.21 (4.8-10.8) K/ul RBC 5.89 (4.70-6.10) M/uL Hgb 17.6 (14.0-18.0) g/dl Hct 52.3 H (42.0-52.0) % MCV 88.8 (80.0-100.0) fL MCH 29.9 (25.0-34.0) pg MCHC 33.7 (32.0-36.0) g/dL RDW Std Deviation 44.5 (36.4-46.3) fL RDW Coeff of Erika 13.6 (11.5-14.5) % Plt Count 235 (130-400) K/uL MPV 9.1 L (9.4-12.4) fL Immature Gran % (Auto) 0.4 % Neut % (Auto) 84.2 % Lymph % (Auto) 8.4 % [place] % (Auto) 6.8 % Eos % (Auto) 0.0 % Baso % (Auto) 0.2 % Neut # (Auto) 7.75 H (1.40-6.50) K/uL Lymph # (Auto) 0.77 L (1.20-3.40) K/uL [place] # (Auto) 0.63 H (0.11-0.59) K/uL Eos # (Auto) 0.00 (0.00-0.50) K/uL Baso # (Auto) 0.02 (0.00-0.20) K/uL Immature Gran # (Auto) 0.04 (0.01-0.20) K/uL Sodium 135 L (136-145) mmol/L Potassium 4.3 (3.5-5.1) mmol/L Chloride 92 L (98-107) mmol/L Carbon Dioxide 27 (21-32) mmol/L Anion Gap 16 H (3-11) BUN 34 H (6-23) mg/dl Creatinine 1.15 (0.6-1.4) mg/dl Est Cr Clr Drug Dosing 55.4 ml/min eGFR 85.65 BUN/Creatinine Ratio 29.6 H (10-20) Glucose 135 H (70-99(Fasting)) mg/dl Lactate 3.5 H* 3.3 H* (0.4-2.0) mmol/L Calcium 10.8 H (8.6-10.3) mg/dl Magnesium 2.5 H (1.7-2.4) mg/dl Total Bilirubin 0.9 (0.2-1.0) mg/dl Direct Bilirubin 0.2 (0-0.2) mg/dl AST 24 (13-39) U/L ALT 17 (7-52) U/L Alkaline Phosphatase 90 (34-104) U/L Troponin I High Sens 9.6 (0-20) pg/ml Total Protein 9.5 H (6.0-8.3) gm/dl Albumin 5.3 H (3.4-5.0) gm/dl Procalcitonin 0.15 (0-0.5) ng/ml Adenovirus (PCR) Not Detected (NotDetected) B. pertussis DNA (PCR) Not Detected (NotDetected) B.parapertussis DNA PCR Not Detected (NotDetected) C. pneumoniae DNA (PCR) Not Detected (NotDetected) Coronavirus OC43 (PCR) Not Detected (NotDetected) Coronavirus HKU1 (PCR) Not Detected (NotDetected) Coronavirus 229E (PCR) Not Detected (NotDetected) SARS-CoV-2 (PCR) Not Detected (NotDetected) Coronavirus NL63 (PCR) Not Detected (NotDetected) Human Metapneumovir PCR Not Detected (NotDetected) Influenza Type A (PCR) Not Detected (NotDetected) Influenza Type B (PCR) Not Detected (NotDetected) M. pneumoniae (PCR) Not Detected (NotDetected) Parainfluenza 1 (PCR) Not Detected (NotDetected) Parainfluenza 2 (PCR) Not Detected (NotDetected) Parainfluenza 3 (PCR) Not Detected (NotDetected) Parainfluenza 4 (PCR) Not Detected (NotDetected) RSV (PCR) Not Detected (NotDetected) Entero/Rhino (PCR) DETECTED A (NotDetected) Administered Medications Albuterol (Albut/Ipratrop 3mg/0.5mg Neb 3 Ml Vial) 3 ml NEB Q4R NIKIA; Protocol Stop: 06/10/25 14:59 Last Admin: 05/11/25 15:06 Dose: 3 ml Documented By: NICOLE Sodium Chloride (Nss) 1,000 mls @ 80 mls/hr IV .[id number] INKIA Stop: 05/12/25 12:59 Last Admin: 05/11/25 14:43 Dose: 80 mls/hr Documented By: dru Levofloxacin/Dextrose (Levaquin/D5w) 750 mg in 150 mls @ 100 mls/hr IV Q24H NIKIA; Protocol Stop: 05/16/25 14:29 Last Admin: 05/11/25 14:42 Dose: 100 mls/hr Documented By: dru Methylprednisolone 40 mg/ (Syringe) 0.64 mls @ 1.5 mls/min IV Q8H NIKIA Stop: 06/10/25 14:29 Last Admin: 05/11/25 14:43 Dose: 1.5 mls/min Documented By: dru Discontinued Medications Albuterol (Albut/Ipratrop 3mg/0.5mg Neb 3 Ml Vial) 6 ml NEB NOW STA; Protocol Stop: 05/11/25 09:45 Last Admin: 05/11/25 10:01 Dose: 6 ml Documented By: OLIMPIA Sodium Chloride (Nss) 1,000 mls @ 999 mls/hr IV .Q1H1M NIKIA Stop: 05/11/25 10:30 Last Infusion: 05/11/25 10:57 Dose: Infused Documented By: chicho Admin: 05/11/25 09:39 Dose: 999 mls/hr Documented By: OLIMPIA Cefepime HCl (Maxipime 2000mg) 2,000 mg in 20 mls @ 5 mls/min IV NOW STA; Protocol Stop: 05/11/25 09:22 Last Admin: 05/11/25 10:01 Dose: 5 mls/min Documented By: SUKHWINDERD Sodium Chloride (Nss) 500 mls @ 999 mls/hr IV .Q31M ONE Stop: 05/11/25 11:14 Last Infusion: 05/11/25 13:07 Dose: Infused Documented By: kmc Admin: 05/11/25 10:56 Dose: 999 mls/hr Documented By: chicho Methylprednisolone (Methylprednisolone 125 Mg/2 Ml Vial) 125 mg IV NOW STA Stop: 05/11/25 09:45 Last Admin: 05/11/25 10:01 Dose: 125 mg Documented By: OLIMPIA Imaging Data Radiologist's Impression: Chest X-Ray 05/11/25 09:20 XR chest 1V portable CLINICAL HISTORY: Sepsis COMPARISON STUDY: 08/19/2023 FINDINGS: Heart size and pulmonary vasculature are normal. Lungs are hyperexpanded, stable. No consolidation or pleural effusion seen. No pneumothorax. IMPRESSION: Hyperexpanded lungs with no pneumonia seen. ACT 112: Negative or not required by law. Electronically signed by: Ed Green M.D. 05/11/2025 9:35 AM Discharge Plan Visit Data Chief Complaint: Shortness of Breath/Dyspnea Stated Complaint: NAUSEA, VOMITING ED Provider: Jt Sawyer Discharge Problem: Acute hypoxemic respiratory failure, COPD exacerbation, Low body mass index (BMI), Elevated lactic acid level, Acute dehydration Patient Disposition: Admitted As Inpatient Condition: Good Discharge Instructions Interventions: ED Discharge Assessment Last Done: 05/11/25 13:44
--- NOTE | 2025-05-11 09:36 | XRay Report ---
XR chest 1V portable CLINICAL HISTORY: Sepsis COMPARISON STUDY: 08/19/2023 FINDINGS: Heart size and pulmonary vasculature are normal. Lungs are hyperexpanded, stable. No consol idation or pleural effusion seen. No pneumothorax. IMPRESSION: Hyperexpanded lungs with no pneumonia seen. ACT 112: Negative or not required by law. Electronically signed by: Ed Green M.D. 05/11/2025 9:35 AM
[2025-05-11] MEDS: SODIUM CHLORIDE 0.9% 1,000 ML IV SCH ×2 (09:39→14:43)
[2025-05-11 09:47] LABS: Hematocrit (blood only) 52.3 % (42.0-52.0); Hemoglobin 17.6 g/dl (14.0-18.0); Immature Granulocytes # (auto) 0.04 K/uL (0.01-0.20); Immature Granulocytes % (auto) 0.4 %; Mean Corpuscular Hemoglobin 29.9 pg (25.0-34.0); Mean Corpuscular Volume 88.8 fL (80.0-100.0); Platelet Count 235 K/uL (130-400); RDW Standard Deviation 44.5 fL (36.4-46.3); Red Blood Count 5.89 M/uL (4.70-6.10); White Blood Count 9.21 K/ul (4.8-10.8)
[2025-05-11] MEDS: ALBUT/IPRATROP 3MG/0.5MG NEB 3 ML VIAL NEB STA (10:01)
[2025-05-11] MEDS: CEFEPIME 2000MG 2,000 MG/20 ML SYR IV STA (10:01)
[2025-05-11 10:05] LABS: Alanine Aminotransferase 17.0 U/L (7-52); Albumin Level 5.3 gm/dl (3.4-5.0); Alkaline Phosphatase 90.0 U/L (34-104); Anion Gap 16.0 (3-11); Bilirubin,Total 0.9 mg/dl (0.2-1.0); Blood Urea Nitrogen 34.0 mg/dl (6-23); Calcium 10.8 mg/dl (8.6-10.3); Carbon Dioxide 27.0 mmol/L (21-32); Chloride 92.0 mmol/L (98-107); Creatinine Clr Calc Pharmacy 55.4 ml/min; Glucose 135.0 mg/dl (70-99(Fasting)); Magnesium 2.5 mg/dl (1.7-2.4); Potassium 4.3 mmol/L (3.5-5.1); Sodium 135.0 mmol/L (136-145); Total Protein 9.5 gm/dl (6.0-8.3)
[2025-05-11] MEDS: SODIUM CHLORIDE 0.9% 500 ML IV ONE (10:56)
--- NOTE | 2025-05-11 10:56 | Electrocardiogram Report ---
Test Reason : Blood Pressure : */* mmHG Vent. Rate : 76 BPM Atrial Rate : 76 BPM P-R Int : 92 ms QRS Dur : 88 ms QT Int : 362 ms P-R-T Axes : 69 91 77 degrees QTcB Int : 407 ms Sinus rhythm with sinus arrhythmia Incomplete right bundle branch block Rightward axis Borderline ECG When compared with ECG of 07-Dec-2023 22:51, No significant change was found Confirmed by Lavell Arroyo ([id number]) on 05/11/2025 10:56:20 AM Referred By: Confirmed By: Lavell Arroyo
--- NOTE | 2025-05-11 11:19 | History & Physical Report ---
Date of Service May 11, 2025 Assessment & Plan (1) COPD exacerbation: (2) Rhinovirus: (3) Smoker: (4) Decreased appetite: (5) Low body mass index (BMI): (6) Anxiety and depression: (7) ADHD (attention deficit hyperactivity disorder): Plan Pt is a 34 male with a PMHx significant for Emphysema, Current Smoker, Marijuana use, hx Benzo OD, Hx Gastritis, Low BMI, ADHD, Anxiety & Depression who presented to the ED c/o shortness of breath and cough. #COPD Exacerbation | Current Smoker | Rhinovirus - 1PPD, also marijuana smoker; hx of Emphysema; CXR ED revealed hyperinflation. Biofire + for Rhinovirus. -IN ED: CBC w/out leukocytosis; BUN elevation noted - likely d/t dehydration; Lactate 3.5 down to 3.3 on trend; UA not overly infectious -[id number] pending -Blood Culture pending -Sputum Culture -NSS 0.9% x2 bags -IV Levaquin -IV Solumedrol q8h -Duoneb Q4H -O2 prn; Goal of O2 Sat 90% -Mucinex prn -Encourage smoking cessation - pt states currently trying to quit -NRT offered; pt declined -CBC, BNP in am #Decreased Appetite | GI upset | Low BMI - Hx Gastritis; GI upset and decreased intake d/t illness -Zofran prn -Regular diet #Anxiety | Depression | ADHD - No acute concerns Dispo: Admit to Med/Tele VTE: Low Risk, Encourage Ambulation Admission and Anticipated Discharge Date Admission Date: 05/11/2025 History of Present Illness Primary Care Provider: NO PCP Pt is a 34 male with a PMHx significant for Emphysema, Current Smoker, Marijuana use, hx Benzo OD, Gastritis, Low BMI, ADHD, Anxiety & Depression who presented to the ED c/o shortness of breath and cough. Pt states that 2days [employer] he began to develop a cough and congestion. Pt states that over the next 24hrs he began to develop SOB, and a "runny nose". Pt states the mucous is 'white/clear'. Pt also admits to decreased appetite and GI upset; he notes that 1day [employer] he tried to eat some crackers and drink water but was "unable to keep them down." He notes that he tried cough syrup to help with cough, with some relief. Pt denies trying anything else to help with sx. Pt admits to chills, congestion, SOB, cough, GI upset, decreased appetite, N/V. Pt denies CP, Palpitation, Sore throat, fever, diarrhea, and orthopnea. Pt was transported to the ED via self. While in the ED, the patient received a CXR that revealed hyperinflation. Pt additionally had a Biofire that was positive for Rhinovirus. Pt notes that he was previously smoking 1PPD, but stopped 4 days ago; although admits to trying to smoke a cigarette in the parking lot prior to coming into the ED. Discussed Code Status with pt; FULL CODE. Pt is being admitted for further evaluation and care. Allergies Allergy/AdvReac Type Severity Reaction Status Date / Time No Known Allergies Allergy Verified 05/11/25 13:30 Home Medications Medication Instructions Recorded Confirmed Type meclizine 25 mg tablet 25 mg PO QID PRN dizziness #12 tabs 12/08/23 Rx Past Med/Surg History Problem List (Updated 05/11/25 @ 15:26 by Renée Billy PA-C) Decreased appetite Smoker Rhinovirus COPD exacerbation Acute kidney failure HANNA (acute kidney injury) (Acute) Abdominal pain (Acute) Dehydration (Acute) Nausea & vomiting (Acute) Diarrhea Martha esophagitis Encounter for pre-operative examination History of marijuana use (Acute) Back pain Dental caries (Acute) patient had all his teeth pulled. Does not have dentures. Fever (Acute) Low body mass index (BMI) Anxiety and depression ADHD (attention deficit hyperactivity disorder) Emphysema of lung Chronic right upper quadrant pain Cannabis hyperemesis syndrome concurrent with and due to cannabis abuse medical marijuana>"told to quit and haven't used any for 5-6 days" Medical History Dehydration Abdominal pain Nausea & vomiting History of inhaled steroid therapy "has no idea why he has his inhaler, but PCP gave it to him to use" HANNA (acute kidney injury) Gastritis, acute with hemorrhage Benzodiazepine overdose age 17 Surgical History History of open heart surgery as an >"thinks they had a couple of clogged arteries, couple of stents" History of dental surgery all teeth pulled, no dentures Family History Mother Diabetes Grandmother Diabetes Grandfather Hypertension Myocardial infarction Stroke Prostate cancer Denies family history of Ovarian cancer Breast cancer Colorectal cancer Social History Smoking Status: Current every day smoker Tobacco Type: Cigarettes Age Started Using Tobacco: 15; Age Quit Using Tobacco: 30; Cigarettes Per Day: 5-10; Second Hand Exposure: Yes; Do You Dip or Chew Tobacco: No; Hx Alcohol Use: No Hx Substance Use: No Preferred Language: Persian Communication Ability: Effective Picture Frame Maker Required: No Beliefs That Will Affect Care: None Current Living Situation: Family Current Living Situation Comment: Takes care of grandma Feels Safe at Home: Yes Safety Concerns: Feels Safe At This Time Assistive Devices: None Review of Systems Review of Systems: All systems reviewed & are unremarkable except as noted in Subjective Physical Exam Physical Exam: General: Pt is a 34 y/o underweight male uncomfortable in bed. VS: reviewed - remarkable Skin: Warm and dry; no lesions or ulcerations Respiratory: Coarse lung-sounds bilat; pt is barrel chested. Cardio: RRR no murmurs Abdomen: normoactive BS x4, mild tenderness to palpation MSK: FROM of extremities, no deformities Extremities: no edema Neuro: A&Ox3, cooperative Results & Data Results & Data Vital Signs (Past 12 Hours) Vital Signs Temp Pulse Pulse Resp BP BP Pulse Ox 05/11/25 10:45 102 H 22 131/82 92 05/11/25 10:30 105 H 27 H 138/95 100 05/11/25 10:15 87 139/90 99 05/11/25 10:00 94 H 30 H 142/105 H 95 05/11/25 09:45 155/97 H 05/11/25 09:35 72 20 155/97 H 93 05/11/25 09:30 96 H 05/11/25 09:20 95 05/11/25 09:11 90 05/11/25 09:10 89 L 05/11/25 08:59 98.1 F 106 H 20 132/92 89 L O2 Del Method O2 Flow Rate 05/11/25 10:45 Room Air 05/11/25 10:30 10/31/25 10:15 05/11/25 10:00 05/11/25 09:45 05/11/25 09:35 Nasal Cannula 2 05/11/25 09:30 05/11/25 09:20 Nasal Cannula 2 05/11/25 09:11 Nasal Cannula 0 05/11/25 09:10 Room Air 05/11/25 08:59 Room Air Diagnostic Findings Chest X-Ray 05/11/25 09:20 XR chest 1V portable CLINICAL HISTORY: Sepsis COMPARISON STUDY: 08/19/2023 FINDINGS: Heart size and pulmonary vasculature are normal. Lungs are hyperexpanded, stable. No consolidation or pleural effusion seen. No pneu mothorax. IMPRESSION: Hyperexpanded lungs with no pneumonia seen. ACT 112: Negative or not required by law. Electronically signed by: Ed Green M.D. 05/11/2025 9:35 AM Code Status & VTE Plan Code Status Full; discussed with patient. Supervising Physician Co-Signing Physician Notes The patient was seen by me. The chart was reviewed. Case discussed with CLAYTON Gunter. Agree with assessment and plan PG Care Time/CCT Total # of Minutes Spent Total Time Spent with Patient: Total time spent is greater than 50% in coordination of care (as documented) at patient's floor/unit and/or counseling patient: Coding Level of Care Code 17585 INT INP/OBS CARE 3/75MIN Diagnoses COPD exacerbation J44.1 Rhinovirus B34.8 Smoker F17.200 Decreased appetite R63.0 Low body mass index (BMI) Anxiety and depression F41.9; F32.A ADHD (attention deficit hyperactivity disorder) F90.9
[2025-05-11 11:36] LABS: Chlamydia pneumoniae PCR Not Detected (NotDetected); Coronavirus 229E PCR Not Detected (NotDetected); Coronavirus CoV-2 (COVID19)PCR Not Detected (NotDetected); Coronavirus HKU1 PCR Not Detected (NotDetected); Coronavirus NL63 PCR Not Detected (NotDetected); Coronavirus OC43PCR Not Detected (NotDetected); Human Metapneumovirus PCR Not Detected (NotDetected); Parainfluenza Virus 1 PCR Not Detected (NotDetected); Parainfluenza Virus 2 PCR Not Detected (NotDetected); Parainfluenza Virus 3 PCR Not Detected (NotDetected); Parainfluenza Virus 4 PCR Not Detected (NotDetected); Respiratory Syncytial VirusPCR Not Detected (NotDetected); Rhinovirus/Enterovirus PCR DETECTED (NotDetected)
[2025-05-11] MEDS ORDERED: ACETAMINOPHEN 325 MG TAB PO PRN (11:59)
[2025-05-11] MEDS ORDERED: ONDANSETRON INJ 2 MG/ML 2 ML VIAL IV PRN (11:59)
[2025-05-11] MEDS ORDERED: POLYETHYLENE (MIRALAX) 17 GM PACK PO PRN (11:59)
[2025-05-11 12:54] LABS: Appearance Urine Clear (Clear); Bacteria Urine Automated None Seen (None Seen); Epithelial Cell Urine Auto 0-2 /hpf (0-2); Glucose Urine UA Trace (Negative); RBC Urine Automated 0-2 /hpf (0-2)
[2025-05-11] MEDS: ALBUT/IPRATROP 3MG/0.5MG NEB 3 ML VIAL NEB SCH (15:06)
[2025-05-11] MEDS: guaiFENesin 600 MG TABCR PO SCH (21:04)
[2025-05-12] MEDS: MELATONIN 3 MG TAB PO PRN (03:10)
[2025-05-12 07:27] LABS: Hematocrit (blood only) 37.8 % (42.0-52.0); Hemoglobin 12.8 g/dl (14.0-18.0); Immature Granulocytes # (auto) 0.02 K/uL (0.01-0.20); Immature Granulocytes % (auto) 0.4 %; Mean Corpuscular Hemoglobin 29.8 pg (25.0-34.0); Mean Corpuscular Volume 87.9 fL (80.0-100.0); Platelet Count 160 K/uL (130-400); RDW Standard Deviation 44.2 fL (36.4-46.3); Red Blood Count 4.30 M/uL (4.70-6.10); White Blood Count 5.49 K/ul (4.8-10.8)
[2025-05-12 08:17] LABS: Anion Gap 5.0 (3-11); Blood Urea Nitrogen 18.0 mg/dl (6-23); Calcium 8.9 mg/dl (8.6-10.3); Carbon Dioxide 28.0 mmol/L (21-32); Chloride 104.0 mmol/L (98-107); Creatinine Clr Calc Pharmacy 93.7 ml/min; Glucose 157.0 mg/dl (70-99(Fasting)); Potassium 4.0 mmol/L (3.5-5.1); Sodium 137.0 mmol/L (136-145)
--- NOTE | 2025-05-12 13:53 | Hospitalist Progress Note ---
Date of Service May 12, 2025 Assessment & Plan (1) Acute bronchitis: Plan: Clinically suspected on admission. Sputum culture is nondiagnostic so far. Continue intravenous Levaquin, day 2. Improving (2) COPD exacerbation: Plan: Improved with nebulizer treatments, parenteral steroid therapy, and treatment of acute bronchitis.. (3) Smoker: Plan: He has emphatically stated that he will stop smoking going forward (4) Low body mass index (BMI): Plan: Smoking cessation probably will result in some weight gain Plan Hopeful discharge to home tomorrow, May 13, on an oral antibiotic and prednisone tapering dose. Admission and Anticipated Discharge Date Admission Date: May 11, 2025 Subjective Alert and oriented. Clinically improved. He has stated emphatically that he will no longer smoke. Intravenous Levaquin and Solu-Medrol day 2. Sputum culture is pending. Blood cultures remain negative to date. Alpha 1 antitrypsin level ordered and pending. Hopefully he can go home tomorrow, May 12, on an oral antibiotic and a prednisone tapering dose. Review of Systems 2 Review of Systems: Constitutionalno fever or chills ENTno blurred vision, no double vision, no epistaxis, no sore throat Respiratoryoccasionally productive cough. No hemoptysis. Dyspnea on exertion. Cardiacno palpitations, no chest pain, no syncope Alyssa nausea, vomiting, diarrhea, melena, hematochezia GUno urinary retention, no urinary incontinence, no dysuria, no hematuria Musculoskeletalno joint pain, no muscle tenderness Skinno bruising, no rashes, no pruritus Neurono isolated weakness, no paresthesia, no weakness Psychno depression, no anxiety Physical Exam 2 Physical Exam: General-alert and oriented x3, no fever, no chills HEENT-head atraumatic and normocephalic, pupils equal and reactive to light, extraocular muscles intact Neck-no lymphadenopathy or thyromegaly, trachea midline Chest-diminished breath sounds bilaterally. Expiratory wheezes have resolved. No audible rhonchi. No inspiratory rales. Cardiac-regular rate and rhythm, normal S1 and S2 Abdomen-normal bowel sounds, no hepatosplenomegaly Extremities-no cyanosis, clubbing, or edema Neuro-cranial nerves II through XII intact, motor and sensory function within normal limits, strength symmetrical, no focal deficits Psych-normal affect, normal mood Results & Data Results & Data Vital Signs (Past 12 Hours) Vital Signs Temp Pulse Pulse Resp BP Pulse Ox O2 Del Method 05/12/25 12:49 36.7 C 89 18 119/72 90 Room Air 05/12/25 11:14 84 18 91 Room Air 05/12/25 09:27 Nasal Cannula 05/12/25 08:17 36.6 C 70 18 114/69 95 Room Air 05/12/25 07:30 86 20 96 Nasal Cannula 05/12/25 06:04 62 05/12/25 02:55 36.7 C 91 H 18 113/62 94 Nasal Cannula 05/12/25 02:10 71 18 90 Room Air O2 Flow Rate 05/12/25 12:49 05/12/25 11:14 05/12/25 09:27 2 05/12/25 08:17 05/12/25 07:30 1.5 05/12/25 06:04 05/12/25 02:55 2 05/12/25 02:10 Laboratory Results 05/12/25 06:40 05/12/25 06:40 PG Care Time/CCT Total # of Minutes Spent Total Time Spent with Patient: Total time spent is greater than 50% in coordination of care (as documented) at patient's floor/unit and/or counseling patient: Coding Level of Care Code 24984 SUB INP/OBS CARE 2/35MIN Diagnoses Acute bronchitis J20.9 COPD exacerbation J44.1 Smoker F17.200 Low body mass index (BMI)
[2025-05-13 06:09] LABS: Hematocrit (blood only) 38.4 % (42.0-52.0); Hemoglobin 12.9 g/dl (14.0-18.0); Immature Granulocytes # (auto) 0.03 K/uL (0.01-0.20); Immature Granulocytes % (auto) 0.5 %; Mean Corpuscular Hemoglobin 29.7 pg (25.0-34.0); Mean Corpuscular Volume 88.3 fL (80.0-100.0); Platelet Count 172 K/uL (130-400); RDW Standard Deviation 45.1 fL (36.4-46.3); Red Blood Count 4.35 M/uL (4.70-6.10); White Blood Count 6.42 K/ul (4.8-10.8)
[2025-05-13 06:24] LABS: Anion Gap 7.0 (3-11); Blood Urea Nitrogen 18.0 mg/dl (6-23); Calcium 9.3 mg/dl (8.6-10.3); Carbon Dioxide 25.0 mmol/L (21-32); Chloride 105.0 mmol/L (98-107); Creatinine Clr Calc Pharmacy 92.4 ml/min; Glucose 139.0 mg/dl (70-99(Fasting)); Potassium 4.4 mmol/L (3.5-5.1); Sodium 137.0 mmol/L (136-145)
[2025-05-13 08:22] VITALS: TEMP 98.1
--- NOTE | 2025-05-13 10:54 | Discharge Summary ---
Discharge Summary Date of Service May 13, 2025 Principal Dx & Hospital Course #1 = Principal Diagnosis (1) Acute bronchitis: Clinically suspected on admission. Sputum culture is nondiagnostic so far. Treated while hospitalized with intravenous levofloxacin. He will continue oral levofloxacin for 7 more days at discharge. (2) COPD exacerbation: Improved with nebulizer treatments, parenteral steroid therapy, and treatment of acute bronchitis.. He will continue prednisone tapering dose at discharge (3) Smoker: He has emphatically stated that he will stop smoking going forward (4) Low body mass index (BMI): Smoking cessation probably will result in some weight gain Plan Home today, May 13, on levofloxacin and a prednisone tapering dose. He will follow-up with his PCP as soon as possible. Admission HPI Per Admitting Provider Pt is a 34 male with a PMHx significant for Emphysema, Current Smoker, Marijuana use, hx Benzo OD, Gastritis, Low BMI, ADHD, Anxiety & Depression who presented to the ED c/o shortness of breath and cough. Pt states that 2days [employer] he began to develop a cough and congestion. Pt states that over the next 24hrs he began to develop SOB, and a "runny nose". Pt states the mucous is 'white/clear'. Pt also admits to decreased appetite and GI upset; he notes that 1day [employer] he tried to eat some crackers and drink water but was "unable to keep them down." He notes that he tried cough syrup to help with cough, with some relief. Pt denies trying anything else to help with sx. Pt admits to chills, congestion, SOB, cough, GI upset, decreased appetite, N/V. Pt denies CP, Palpitation, Sore throat, fever, diarrhea, and orthopnea. Pt was transported to the ED via self. While in the ED, the patient received a CXR that revealed hyperinflation. Pt additionally had a Biofire that was positive for Rhinovirus. Pt notes that he was previously smoking 1PPD, but stopped 4 days ago; although admits to trying to smoke a cigarette in the parking lot prior to coming into the ED. Discussed Code Status with pt; FULL CODE. Pt is being admitted for further evaluation and care. Discharge Exam General-alert and oriented x3, no fever, no chills HEENT-head atraumatic and normocephalic, pupils equal and reactive to light, extraocular muscles intact Neck-no lymphadenopathy or thyromegaly, trachea midline Chest-diminished breath sounds bilaterally. Expiratory wheezes have resolved. No audible rhonchi. No inspiratory rales. Cardiac-regular rate and rhythm, normal S1 and S2 Abdomen-normal bowel sounds, no hepatosplenomegaly Extremities-no cyanosis, clubbing, or edema Neuro-cranial nerves II through XII intact, motor and sensory function within normal limits, strength symmetrical, no focal deficits Psych-normal affect, normal mood Discharge Plan Discharge Items Patient Disposition: Home - Self-Care Reason For Visit: SOB Discharge Diagnosis: Acute bronchitis, acute exacerbation emphysema Condition on Discharge: Good Activity: Resume your previous activity Non-emergency contact: Primary Care Provider Call non-emergency contact if: your symptoms worsen Follow-up/Referrals: PCP,NO [Primary Care Provider] - Diet: Regular Addtl Attending Provider Instructions: Smoking cessation is highly recommended. Take levofloxacin antibiotic once daily for an additional week for bronchitis and take prednisone and a tapering dose fashion as directed until gone. Prescriptions have been sent to [facility] Pending Studies at Discharge: Yes Studies:: Alpha 1 antitrypsin level Stand-Alone Forms: My [facility] [employer], Work/School Release, Smoking Cessation Medications and DC Order Prescriptions: New levofloxacin 500 mg tablet 500 mg PO DAILY 7 Days Qty: 7 0RF prednisone 10 mg tablet See Rx Instructions .ROUTE .COMPLEX Qty: 12 0RF Rx Instructions: 10 mg orally 3 times a day for 2 days, then 10 mg twice a day for 2 days, then 10 mg once a day for 2 days, then stop Continued meclizine 25 mg tablet 25 mg PO QID PRN (Reason: dizziness) Qty: 12 0RF Discharge Orders: Discharge Order (Routine); Ordered 05/13/25 Ordered By: Matt Bashir Admission Data Admit Date/Time: 05/11/25 11:59 Attending Provider: Matt Bashir Admit Provider: Matt Bashir Primary Care Provider: PCP,NO Other Providers: Matt Bashir Hospital Stay Data Consultations 05/11/25 10:43 ED Decision to Admit Stat Pending Results Patient Have Any Pending Studies at Discharge: Yes Discharge Instructions Given to Patient (Per Discharging Provider) Smoking cessation is highly recommended. Take levofloxacin antibiotic once daily for an additional week for bronchitis and take prednisone and a tapering dose fashion as directed until gone. Prescriptions have been sent to [facility] Total Time Total Time Spent Total Time Spent (In Minutes): 45 minutes. Total time included patient exam, discharge planning, and medication reconciliation. Coding Level of Care Code 19857 INP/OBS DISCH >30 MIN Diagnoses Acute bronchitis J20.9 COPD exacerbation J44.1 Smoker F17.200 Low body mass index (BMI)
[2025-05-13 11:01] VITALS: BP 117/79; RESP 18
[2025-05-13 11:23] VITALS: PULSE 74; O2SAT 92
== END 2025-05-13 11:55 | disposition home or self-care (01) | DRG 189 ==
LOC: SUATTDRO → ED 08:50 → 2W 11:59